=== PATIENT | female | born 1930 | race Caucasian/White ===

== ENCOUNTER → 2016-03-14 | Outpatient (CLI) | payer MEDICARE | LOC: RAD 12:34 | PROVIDERS: ATTEND Internal Medicine Medical Oncology | DX: R10.9 Unspecified abdominal pain (principal) | CPT/HCPCS: 74160; 82565 ==

== ENCOUNTER 2016-06-11 14:27 | Inpatient (IN) | payer MEDICARE ==
[2016-06-11] MEDS ORDERED: OXYCODONE-ACETAMINOPHEN 5-325 MG TABLET PO ONE (15:25)
--- NOTE | 2016-06-11 15:26 | ER Document Report ---
ED Medical Screen (RME) - General Chief Complaint: Leg Swelling Stated Complaint: LEG SWELLING,DIZZINES Time seen by provider: 15:25 Mode of Arrival: Wheelchair Information source: Patient TRAVEL OUTSIDE OF THE [place] IN LAST 30 DAYS: No - HPI Patient complains to provider of: left lower extremity swelling and pain Onset: Other - 4 days Onset/Duration: Worse Quality of pain: Fullness, Pressure, Throbbing Severity: Moderate Pain Level: 4 Associated Symptoms: Dizzy/lightheaded, Shortness of breath Exacerbated by: Denies Relieved by: Denies Similar symptoms previously: No Recently seen / treated by doctor: No Notes: 06/11/16 15:25 Patient is an 86-year-old female who presents to the emergency room complaining of left lower extremity pain and swelling and worsening over the past 4 days, she is a history of a total knee replacement approximately 3 years ago, she reports occasional chest pain with dyspnea on exertion worsening over the past few days as well - Related Data Allergies/Adverse Reactions: bupropion HCl [From Wellbutrin] Allergy (Intermediate, Verified 06/11/16 14:51) hallucination,diarrhea Past Medical History - Past Medical History Cardiac Medical History: Reports: Hx Hypertension - medicated Denies: Hx Coronary Artery Disease, Hx Heart Attack Pulmonary Medical History: Denies: Hx Asthma, Hx Bronchitis, Hx COPD, Hx Pneumonia Neurological Medical History: Denies: Hx Cerebrovascular Accident, Hx Seizures Renal/ Medical History: Denies: Hx Peritoneal Dialysis GI Medical History: Denies: Hx Hepatitis, Hx Hiatal Hernia, Hx Ulcer Musculoskeltal Medical History: Reports Hx Arthritis Infectious Medical History: Denies: Hx Hepatitis Past Surgical History: Reports: Hx Hysterectomy, Hx Mastectomy - apr 2011 denise/ no restrictions. Denies: Hx Open Heart Surgery, Hx Pacemaker - Immunizations Hx Diphtheria, Pertussis, Tetanus Vaccination: Yes Physical Exam - Vital signs Vitals: Temp Pulse Resp BP Pulse Ox 98.4 F 95 20 106/80 97 06/11/16 14:51 06/11/16 14:51 06/11/16 14:51 06/11/16 14:51 06/11/16 14:51 Course - Vital Signs Vital signs: Temp Pulse Resp BP Pulse Ox 98.4 F 95 20 106/80 97 06/11/16 14:51 06/11/16 14:51 06/11/16 14:51 06/11/16 14:51 06/11/16 14:51
[2016-06-11 15:46] LABS: ABSOLUTE BASOPHILS # (AUTO) 0.1 10^3/uL (0.0-0.2); ABSOLUTE EOSINOPHILS # (AUTO) 0.1 10^3/uL (0.0-0.6); ABSOLUTE MONOCYTES (AUTO) 0.9 10^3/uL (0.1-1.4); ABSOLUTE NEUT (AUTO) 9.7 10^3/uL (1.7-8.2); BASOPHILS % (AUTO) 0.8 % (0-2); EOSINOPHILS % (AUTO) 0.7 % (0-6); HEMATOCRIT 34.7 % (36.0-47.0); HEMOGLOBIN 11.4 g/dL (12.0-15.5); HGB HCT DIFFERENCE -0.5; LYMPHOCYTES % (AUTO) 8.7 % (13-45); MEAN CORPUSCULAR HEMOGLOBIN 30.3 pg (27.0-33.4); MEAN CORPUSCULAR HGB CONC 32.9 g/dL (32.0-36.0); MEAN CORPUSCULAR VOLUME 92 fl (80-97); MONOCYTES % (AUTO) 7.8 % (3-13); RED BLOOD COUNT 3.77 10^6/uL (3.72-5.28); RED CELL DISTRIBUTION WIDTH 14.1 % (11.5-14.0); WHITE BLOOD COUNT 11.8 10^3/uL (4.0-10.5)
[2016-06-11 15:55] LABS: PARTIAL THROMBOPLASTIN TIME 25.8 SEC (23.5-35.8)
[2016-06-11 16:31] LABS: ALANINE AMINOTRANSFERASE 25 U/L (9-52); ALBUMIN 3.5 g/dL (3.5-5.0); ALKALINE PHOSPHATASE 63 U/L (38-126); ANION GAP 19 (5-19); ASPARTATE AMINO TRANSFERASE 23 U/L (14-36); BILIRUBIN,DIRECT 0.4 mg/dL (0.0-0.4); BILIRUBIN,TOTAL 0.6 mg/dL (0.2-1.3); BLOOD UREA NITROGEN 38 mg/dL (7-20); CALCIUM 9.2 mg/dL (8.4-10.2); CARBON DIOXIDE 22 mmol/L (22-30); CHLORIDE 96 mmol/L (98-107); CREATINE KINASE 35 U/L (30-135); CREATININE RESULT 1.93 mg/dL (0.52-1.25); GLUCOSE 206 mg/dL (75-110); POTASSIUM 3.8 mmol/L (3.6-5.0); SODIUM 137.1 mmol/L (137-145); TOTAL PROTEIN 6.4 g/dL (6.3-8.2)
[2016-06-11 16:39] LABS: CREATINE KINASE MB 1.03 ng/mL (<4.55); TROPONIN I 0.024 ng/mL
--- NOTE | 2016-06-11 17:13 | ER Document Report ---
ED General - General Mode of Arrival: Wheelchair Information source: Patient TRAVEL OUTSIDE OF THE [place] IN LAST 30 DAYS: No - HPI Patient complains to provider of: Left Leg Swelling Onset: Other - 06/06/2016 Onset/Duration: Sudden Associated symptoms: Chest pain, Shortness of breath, Weakness Exacerbated by: Movement <JOHN PIÑA - Last Filed: 06/11/16 18:08> <ANDREW GASPAR - Last Filed: 06/14/16 05:46> - General Chief Complaint: Leg Swelling Stated Complaint: LEG SWELLING,DIZZINES Notes: Patient is an 86-year-old female presenting to the emergency department with concerns of left leg swelling onset 06/06/2016 with significant associated pain. Patient states she actually first noticed the pain in her groin, and it continued to progress as the swelling progress. Patient also states that she has been short of breath today severely with exertion. Patient also mentions 2 weeks of chest pain and generalized weakness. Patient states that "it all started with her irritable bowel syndrome." Per patient's daughter, patient was experiencing rectal bleeding at the end of May, but when she started taking Metamucil, and it resolved itself. Patient states that she also has history of hemorrhoids, where the blood was bright red, but the rectal bleeding that happened at the end of May was a darker color. Patient was scheduled to have colonoscopy on Thursday, but didn't make it due to her leg pain. Patient's GI doctor is Dr. Luevano. Patient's primary care physician is Dr. Reese. (JOHN PIÑA) - Related Data Allergies/Adverse Reactions: bupropion HCl [From Wellbutrin] Allergy (Intermediate, Verified 06/11/16 14:51) hallucination,diarrhea Home Medications: Current Home Medications Amlodipine Besylate [Norvasc 10 mg Tablet] 10 mg PO DAILY 06/11/16 [History] Hydralazine HCl [Apresoline 25 mg Tablet] 25 mg PO Q12 06/11/16 [History] Levothyroxine Sodium [Synthroid] 150 mcg PO DAILY 06/11/16 [History] Metformin HCl [Metformin HCl ER] 2,000 mg PO MEALS 06/11/16 [History] Omeprazole 20 mg PO DAILY 06/11/16 [History] Tamoxifen Citrate 10 mg PO BID 06/11/16 [History] Valsartan/Hydrochlorothiazide [Valsartan-Hctz 320-25 mg Tab] 1 tab PO DAILY 04/25 [History] Venlafaxine HCl [Venlafaxine HCl ER] 150 mg PO DAILY 06/11/16 [History] Past Medical History - General Information source: Patient - Social History Smoking Status: Former Smoker Chew tobacco use (# tins/day): No Frequency of alcohol use: None Drug Abuse: None Family History: Reviewed & Not Pertinent Patient has suicidal ideation: No Patient has homicidal ideation: No - Past Medical History Cardiac Medical History: Reports: Hx Hypertension - medicated, Other - Pacemaker Endocrine Medical History: Reports: Hx Diabetes Mellitus Type 1 Malignancy Medical History: Reports: Hx Breast Cancer GI Medical History: Reports: Hx Hiatal Hernia, Hx Irritable Bowel, Hx Endoscopy Musculoskeltal Medical History: Reports Hx Arthritis Infectious Medical History: Denies: Hx Hepatitis Past Surgical History: Reports: Hx Hysterectomy, Hx Mastectomy - apr 2011 denise/ no restrictions, Hx Orthopedic Surgery - Left knee replacement. Denies: Hx Open Heart Surgery, Hx Pacemaker - Immunizations Hx Diphtheria, Pertussis, Tetanus Vaccination: Yes Hx Pneumococcal Vaccination: 11/11/10 <JOHN PIÑA - Last Filed: 06/11/16 18:08> Review of Systems - Review of Systems Constitutional: See HPI, Weakness EENT: No symptoms reported Cardiovascular: See HPI, Chest pain Respiratory: See HPI, Short of breath Gastrointestinal: No symptoms reported. denies: Rectal bleeding - At this point in time Genitourinary: No symptoms reported Female Genitourinary: No symptoms reported Musculoskeletal: See HPI, Leg swelling - Left, Other - Pain in left groin and leg Skin: No symptoms reported Hematologic/Lymphatic: No symptoms reported Neurological/Psychological: No symptoms reported -: Yes All other systems reviewed and negative <JOHN PIÑA - Last Filed: 06/11/16 18:08> Physical Exam - General General appearance: Appears well, Alert - HEENT Head: Normocephalic, Atraumatic Eyes: Normal Pupils: PERRL - Respiratory Respiratory status: No respiratory distress Chest status: Nontender Breath sounds: Normal Chest palpation: Normal - Cardiovascular Rhythm: Regular Heart sounds: Normal auscultation Murmur: No - Abdominal Inspection: Obese Distension: No distension Bowel sounds: Normal Tenderness: Nontender Organomegaly: No organomegaly - Back Back: Normal, Nontender - Extremities General upper extremity: Normal inspection, Nontender General lower extremity: Edema - Increased swelling of her left lower extremity compared to the right. Good pulses and perfusion. Mild varicose veins. - Neurological Neuro grossly intact: Yes Cognition: Normal Orientation: AAOx4 Prescott Coma Scale Eye Opening: Spontaneous Francisco Javier Coma Scale Verbal: Oriented Prescott Coma Scale Motor: Obeys Commands Francisco Javier Coma Scale Total: 15 Speech: Normal - Psychological Associated symptoms: Normal affect, Normal mood - Skin Skin Temperature: Warm Skin Moisture: Dry Skin Color: Normal <ANTONIO PIÑAICA - Last Filed: 06/11/16 18:08> Course - Laboratory Result Diagrams: 06/11/16 15:35 06/11/16 15:35 - Consults Dr. Reese Time consulted: 17:36 Consulted provider: will see as inpatient <ANTONIO PIÑAICA - Last Filed: 06/11/16 18:08> - Laboratory Result Diagrams: 06/11/16 15:35 06/13/16 04:20 <ANDREW GASPAR - Last Filed: 06/14/16 05:46> - Re-evaluation Re-evalutation: 06/11/16 17:40 Patient presents to the emergency department with pain and swelling in her left groin that started 4 days ago. She says got progressively worse to the point where her granddaughter couldn't get her into the car today. In addition to that the granddaughter is stating that for the past week to 2 weeks she's been progressively short of breath after specific details about this and for at least the past week when she gets up and tries to exert herself she gets so short of breath that she has to stop and rest. Patient states he gets worse when she exerts herself and is stable at rest. She describing classic anginal type symptoms. She does not have a history of NM or stents according to the records show patient. EKG is paced rhythm troponin is negative chest x-ray is negative she has a deep DVT that extends from the left groin down to the entire leg which is associated with swelling and good pulses and perfusion. Discussed this with her primary care physician in addition to the fact that she had mentioned external hemorrhoids. They are not actively bleeding her guaiac is negative from below she has no epigastric abdominal pain and has not been known thinners in the past. She did mention at the end of May doctor we G did an upper GI scope and said she might have some ulcers we have no record of that on file. Despite all of this I presented this to the primary care physician Dr. Mckeon who stated ahead and put her on full dose Lovenox and admit her to the telemetry unit. In addition to that going to give her a dose of aspirin and further admit her to telemetry for a lower extremity DVT in dyspnea on exertion (ANDREW GASPAR) - Vital Signs Vital signs: Temp Pulse Resp BP Pulse Ox 99.5 F 61 14 116/47 L 93 06/13/16 23:50 06/14/16 02:00 06/13/16 23:50 06/13/16 23:50 06/13/16 23:50 - Laboratory Laboratory results interpreted by me: 06/11/16 06/11/16 06/11/16 15:35 15:35 15:35 WBC 11.8 H Hgb 11.4 L Hct 34.7 L RDW 14.1 H Seg Neutrophils % 82.0 H Lymphocytes % 8.7 L Absolute Neutrophils 9.7 H Chloride 96 L BUN 38 H Creatinine 1.93 H Est GFR ( Amer) 30 L Est GFR (Non-Af Amer) 25 L Glucose 206 H NT-Pro-B Natriuret Pep 833 H - EKG Interpretation by Me Additional EKG results interpreted by me: 06/11/16 17:44 ekg is paced rhythm (ANDREW GASPAR) - Consults Dr. Reese Reason for consultation: 06/11/16 17:36 discussed patient's case with Dr. Reese who agrees to admit the patient (JOHN PIÑA) Critical Care Note - Critical Care Note Total time excluding time spent on procedures (mins): 45 <ANDREW GASPAR - Last Filed: 06/14/16 05:46> Discharge <JOHN PIÑA - Last Filed: 06/11/16 18:08> - Discharge Admitting Provider: Linda Unit Admitted: Telemetry <ANDREW GASPAR - Last Filed: 06/14/16 05:46> - Discharge Clinical Impression: acute lower extremity dvt, dyspnea with exertion Condition: Stable Disposition: ADMITTED OBSERVATION Scribe Attestation: 06/11/16 17:40 I personally performed the services described in the documentation reviewed the documentation recorded by my scribe in my presence and it accurately and completely records my words and actions (ANDREW GASPAR) Scribe Documentation - Scribe Written by Scribe:: John Piña 06/11/2016 1713 acting as scribe for :: Dr. Gaspar <JOHN PIÑA - Last Filed: 06/11/16 18:08>
--- NOTE | 2016-06-11 19:13 | EKG REPORT ---
SEVERITY:- ABNORMAL ECG - SINUS RHYTHM, PACS, SOME NON-CONDUCTED. LEFT ANTERIOR FASCICULAR BLOCK PROBABLE LVH WITH SECONDARY REPOL ABNRM OLD ANTERIOR IL : Confirmed by: Yasmany Hebert MD 11-Jun-2016 19:12:55
[2016-06-11] MEDS ORDERED: WARFARIN SODIUM 5 MG TABLET PO ONE (23:45)
[2016-06-11] MEDS ORDERED: ENOXAPARIN SODIUM INJ 100 MG/1 ML DISP.SYRIN SUBCUT ONE (23:45)
--- NOTE | 2016-06-12 08:27 | PDOC H&P ---
History of Present Illness Admission Date/PCP: 06/12/16 00:04 NERY JENSEN MD Patient complains of: d L leg swelling History of Present Illness: GARCIA TRINIDAD is a 86 year old female with new L leg swelling & pain & inablility to walk. Extensive dvt in ER. Past Medical History Cardiac Medical History: Reports: Congestive Heart Failure - diastolic wtih stiffness last year, Hypertension - medicated, Other - Pacemaker Denies: Coronary Artery Disease, Myocardial Infarction Pulmonary Medical History: Reports: Bronchitis - 2006 chronic bronchitis Denies: Asthma, Pneumonia EENT Medical History: Reports: Nose - allergic rhinitis Neurological Medical History: Reports: Other - diabetic neuropathy Denies: Seizures Endocrine Medical History: Reports: Diabetes Mellitus Type 2 Renal/ Medical History: Denies: Chronic Kidney Disease Malignancy Medical History: Reports: Breast Cancer - 2002 GI Medical History: Reports: Gastroesophageal Reflux Disease - barretts, Peptic Ulcer Disease, Other - ibs Denies: Hepatitis Musculoskeltal Medical History: Reports: Arthritis Psychiatric Medical History: Reports: Depression Traumatic Medical History: Reports: None Hematology: Denies: Anemia, Sickle Cell Disease Infectious Medical History: Reports: None Past Surgical History Past Surgical History: Reports: Hysterectomy, Mastectomy - apr 2011 denise/no restrictions, Orthopedic Surgery - Left knee replacement laminectomy, Other Denies: Amputation, Pacemaker Social History Information Source: Dr. Coughlin Lives with: Alone Smoking Status: Former Smoker Last Time Smoked: 1985 Frequency of Alcohol Use: None Hx Recreational Drug Use: No Drugs: None Hx Prescription Drug Abuse: No - Advance Directive Resuscitation Status: Full Code Family History Family History: Hypertension, Malignancy Parental Family History Reviewed: Yes Children Family History Reviewed: Yes Sibling(s) Family History Reviewed.: Yes Medication/Allergy Home Medications: Amlodipine Besylate [Norvasc 10 mg Tablet] 10 mg PO DAILY 06/11/16 Hydralazine HCl [Apresoline 25 mg Tablet] 25 mg PO Q12 06/11/16 Levothyroxine Sodium [Synthroid] 150 mcg PO DAILY 06/11/16 Metformin HCl [Metformin HCl ER] 2,000 mg PO MEALS 06/11/16 Omeprazole 20 mg PO DAILY 06/11/16 Tamoxifen Citrate 10 mg PO BID 06/11/16 Valsartan/Hydrochlorothiazide [Valsartan-Hctz 320-25 mg Tab] 1 tab PO DAILY 04/25 Venlafaxine HCl [Venlafaxine HCl ER] 150 mg PO DAILY 06/11/16 Allergies/Adverse Reactions: bupropion HCl [From Wellbutrin] Allergy (Intermediate, Verified 06/11/16 14:51) hallucination,diarrhea Review of Systems Constitutional: PRESENT: weight loss. ABSENT: fever(s), headache(s) Nose, Mouth, and Throat: PRESENT: sore throat Cardiovascular: PRESENT: dyspnea on exertion, orthropnea. ABSENT: chest pain Respiratory: PRESENT: cough, dyspnea, sputum Gastrointestinal: ABSENT: abdominal pain, constipation, diarrhea, hematochezia, melena, vomiting Genitourinary: ABSENT: dysuria, hematuria Physical Exam Vital Signs: Temp Pulse Resp BP Pulse Ox 99.1 F 76 18 119/61 93 06/12/16 03:34 06/12/16 03:34 06/12/16 03:34 06/12/16 03:34 06/12/16 03:34 Intake & Output 06/10/16 06/11/16 06/12/16 07:59 07:59 07:59 Weight 204 lb 12.951 oz General appearance: PRESENT: no acute distress Neck exam: ABSENT: lymphadenopathy, tenderness, thyromegaly, tracheal deviation Respiratory exam: PRESENT: wheezes - slight Cardiovascular exam: ABSENT: diastolic murmur, irregular rhythm, systolic murmur GI/Abdominal exam: ABSENT: mass, organolmegaly, tenderness Rectal exam: PRESENT: heme (-) stool Extremities exam: ABSENT: pedal edema - L leg. Homans+ Neurological exam: PRESENT: oriented to situation Psychiatric exam: PRESENT: appropriate affect Results Laboratory Results: Abnormal - 24 hr 06/11/16 06/11/16 06/11/16 15:35 15:35 15:35 WBC 11.8 H Hgb 11.4 L Hct 34.7 L RDW 14.1 H Seg Neutrophils % 82.0 H Lymphocytes % 8.7 L Absolute Neutrophils 9.7 H Chloride 96 L BUN 38 H Creatinine 1.93 H Est GFR ( Amer) 30 L Est GFR (Non-Af Amer) 25 L Glucose 206 H NT-Pro-B Natriuret Pep 833 H EKG Comments: slow R progression Impressions: Chest X-Ray 06/11/16 15:24 IMPRESSION: NO SIGNIFICANT RADIOGRAPHIC FINDING IN THE CHEST. Venous Doppler Study 06/11/16 15:24 IMPRESSION: DIFFUSE DEEP VENOUS THROMBOSIS THROUGHOUT THE LEFT LEG. Knee X-Ray 06/11/16 15:26 IMPRESSION: Total knee arthroplasty. Assessment & Plan - Diagnosis (1) Phlebitis of left femoral vein Is this a current diagnosis for this admission?: YesPlan: lovenox coumadin. Consider novel $. CC34 (2) Acute kidney failure with tubular necrosis Is this a current diagnosis for this admission?: YesPlan: nov cr0.9. Force fluids
[2016-06-12] MEDS: AMLODIPINE BESYLATE 10 MG TABLET PO SCH (09:48)
[2016-06-12] MEDS: VENLAFAXINE HCL 75 MG CAP.SR.24H PO SCH (09:48)
[2016-06-12] MEDS: LANSOPRAZOLE 30 MG TAB.RAP.DR PO SCH (09:49)
[2016-06-12] MEDS: TAMOXIFEN CITRATE 10 MG TABLET PO SCH ×2 (09:49→17:49)
[2016-06-12] MEDS: ACETAMINOPHEN 325 MG TABLET PO PRN (09:54)
[2016-06-12] MEDS ORDERED: LEVOTHYROXINE SODIUM 0.15 MG TABLET PO SCH (10:00)
[2016-06-12] MEDS ORDERED: ENOXAPARIN SODIUM INJ 100 MG/1 ML DISP.SYRIN SUBCUT SCH (12:00)
[2016-06-12] MEDS ORDERED: WARFARIN SODIUM 5 MG TABLET PO SCH (22:00)
[2016-06-13 04:45] LABS: PROTHROMBIN TIME 13.1 SEC (11.4-15.4)
[2016-06-13] MEDS: LEVOTHYROXINE SODIUM 0.15 MG TABLET PO SCH (05:25)
[2016-06-13 05:53] LABS: ANION GAP 12 (5-19); BLOOD UREA NITROGEN 38 mg/dL (7-20); CALCIUM 8.4 mg/dL (8.4-10.2); CARBON DIOXIDE 26 mmol/L (22-30); CHLORIDE 97 mmol/L (98-107); GLUCOSE 166 mg/dL (75-110); POTASSIUM 4.1 mmol/L (3.6-5.0)
--- NOTE | 2016-06-13 07:28 | PDOC PROGRESS REPORT ---
Subjective Progress Note for:: 06/13/16 Subjective:: less L leg pain Physical Exam Vital Signs: Temp Pulse Resp BP Pulse Ox 98.6 F 83 18 134/89 H 95 06/13/16 04:42 06/13/16 04:42 06/13/16 04:42 06/13/16 04:42 06/13/16 04:42 Intake & Output 06/11/16 06/12/16 06/13/16 07:59 07:59 07:59 Intake Total 387 Balance 387 Weight 204 lb 12.951 oz 204 lb 12.951 oz General appearance: PRESENT: no acute distress Respiratory exam: PRESENT: clear to auscultation denise Cardiovascular exam: ABSENT: diastolic murmur, irregular rhythm, systolic murmur GI/Abdominal exam: ABSENT: mass, organolmegaly, tenderness Extremities exam: PRESENT: pedal edema - L Results Laboratory Results: 06/13/16 04:20 06/13/16 04:20 Sodium 135.0 L Potassium 4.1 Chloride 97 L Carbon Dioxide 26 Anion Gap 12 BUN 38 H Creatinine 1.20 Est GFR ( Amer) 52 L Est GFR (Non-Af Amer) 43 L Glucose 166 H Calcium 8.4 Impressions: Chest X-Ray 06/11/16 15:24 IMPRESSION: NO SIGNIFICANT RADIOGRAPHIC FINDING IN THE CHEST. Venous Doppler Study 06/11/16 15:24 IMPRESSION: DIFFUSE DEEP VENOUS THROMBOSIS THROUGHOUT THE LEFT LEG. Knee X-Ray 06/11/16 15:26 IMPRESSION: Total knee arthroplasty. Assessment & Plan - Diagnosis (1) Phlebitis of left femoral vein Is this a current diagnosis for this admission?: YesPlan: lovenox 100ng qd. Coumadin education (2) Acute kidney failure with tubular necrosis Is this a current diagnosis for this admission?: YesPlan: bmp
[2016-06-13] MEDS: AMLODIPINE BESYLATE 10 MG TABLET PO SCH (10:45)
[2016-06-13] MEDS: ENOXAPARIN SODIUM INJ 100 MG/1 ML DISP.SYRIN SUBCUT SCH (10:46)
[2016-06-13] MEDS: VENLAFAXINE HCL 75 MG CAP.SR.24H PO SCH (10:46)
[2016-06-13] MEDS: TAMOXIFEN CITRATE 10 MG TABLET PO SCH ×2 (10:46→19:02)
[2016-06-13] MEDS: LANSOPRAZOLE 30 MG TAB.RAP.DR PO SCH (10:46)
[2016-06-14] MEDS: LEVOTHYROXINE SODIUM 0.15 MG TABLET PO SCH (05:35)
--- NOTE | 2016-06-14 06:17 | PDOC PROGRESS REPORT ---
Subjective Progress Note for:: 06/14/16 Subjective:: less leg pain Physical Exam Vital Signs: Temp Pulse Resp BP Pulse Ox 99.5 F 61 14 116/47 L 93 06/13/16 23:50 06/14/16 02:00 06/13/16 23:50 06/13/16 23:50 06/13/16 23:50 Intake & Output 06/12/16 06/13/16 06/14/16 07:59 07:59 07:59 Intake Total 387 220 Balance 387 220 Weight 204 lb 12.951 oz 204 lb 12.951 oz General appearance: PRESENT: no acute distress Respiratory exam: PRESENT: clear to auscultation denise Cardiovascular exam: ABSENT: diastolic murmur, irregular rhythm, systolic murmur Extremities exam: PRESENT: pedal edema - L Neurological exam: PRESENT: oriented to situation Psychiatric exam: PRESENT: appropriate affect Results Laboratory Results: 06/13/16 04:20 Impressions: Chest X-Ray 06/11/16 15:24 IMPRESSION: NO SIGNIFICANT RADIOGRAPHIC FINDING IN THE CHEST. Venous Doppler Study 06/11/16 15:24 IMPRESSION: DIFFUSE DEEP VENOUS THROMBOSIS THROUGHOUT THE LEFT LEG. Knee X-Ray 06/11/16 15:26 IMPRESSION: Total knee arthroplasty. Assessment & Plan - Diagnosis (1) Phlebitis of left femoral vein Is this a current diagnosis for this admission?: YesPlan: inr pending. No increase as of yesterday. (2) Acute kidney failure with tubular necrosis Is this a current diagnosis for this admission?: YesPlan: creatinine improved
[2016-06-14 06:45] LABS: BLOOD UREA NITROGEN 31 mg/dL (7-20); CALCIUM 8.1 mg/dL (8.4-10.2); CREATININE RESULT 0.86 mg/dL (0.52-1.25); GLUCOSE 159 mg/dL (75-110); POTASSIUM 3.9 mmol/L (3.6-5.0)
[2016-06-14 06:46] LABS: ANION GAP 11 (5-19); CARBON DIOXIDE 27 mmol/L (22-30); CHLORIDE 101 mmol/L (98-107); SODIUM 138.8 mmol/L (137-145)
[2016-06-14] MEDS: ENOXAPARIN SODIUM INJ 100 MG/1 ML DISP.SYRIN SUBCUT SCH (10:53)
[2016-06-14] MEDS: TAMOXIFEN CITRATE 10 MG TABLET PO SCH ×2 (10:54→17:33)
[2016-06-14] MEDS: VENLAFAXINE HCL 75 MG CAP.SR.24H PO SCH (10:54)
[2016-06-14] MEDS: AMLODIPINE BESYLATE 10 MG TABLET PO SCH (10:54)
[2016-06-14] MEDS: LANSOPRAZOLE 30 MG TAB.RAP.DR PO SCH (10:54)
[2016-06-14] MEDS ORDERED: METOPROLOL SUCCINATE 50 MG TAB.SR.24H PO ONE (15:00)
[2016-06-14] MEDS ORDERED: WARFARIN SODIUM 5 MG TABLET PO SCH (22:00)
[2016-06-15] MEDS: LEVOTHYROXINE SODIUM 0.15 MG TABLET PO SCH (06:04)
[2016-06-15 06:14] LABS: PROTHROMBIN TIME 12.5 SEC (11.4-15.4)
[2016-06-15 06:27] LABS: ANION GAP 9 (5-19); BLOOD UREA NITROGEN 27 mg/dL (7-20); CALCIUM 8.1 mg/dL (8.4-10.2); CARBON DIOXIDE 28 mmol/L (22-30); CHLORIDE 101 mmol/L (98-107); GLUCOSE 169 mg/dL (75-110); POTASSIUM 4.1 mmol/L (3.6-5.0); SODIUM 137.9 mmol/L (137-145)
--- NOTE | 2016-06-15 06:49 | PDOC PROGRESS REPORT ---
Subjective Progress Note for:: 06/15/16 Subjective:: L leg still swollen Physical Exam Vital Signs: Temp Pulse Resp BP Pulse Ox 98.9 F 86 22 H 108/47 L 93 06/14/16 23:46 06/15/16 02:00 06/14/16 23:46 06/14/16 23:46 06/14/16 23:46 Intake & Output 06/13/16 06/14/16 06/15/16 07:59 07:59 07:59 Intake Total 387 220 710 Output Total 600 Balance 387 220 110 Weight 204 lb 12.951 oz 208 lb 5.389 oz General appearance: PRESENT: no acute distress Respiratory exam: PRESENT: clear to auscultation denise Cardiovascular exam: ABSENT: diastolic murmur, irregular rhythm, systolic murmur GI/Abdominal exam: ABSENT: tenderness Extremities exam: PRESENT: pedal edema - L1+ Results Laboratory Results: 06/15/16 05:29 06/14/16 06/15/16 05:45 05:29 Sodium 138.8 137.9 Potassium 3.9 4.1 Chloride 101 101 Carbon Dioxide 27 28 Anion Gap 11 9 BUN 31 H 27 H Creatinine 0.86 0.80 Est GFR ( Amer) > 60 > 60 Est GFR (Non-Af Amer) > 60 > 60 Glucose 159 H 169 H Calcium 8.1 L 8.1 L Labs- Last Values WBC 11.8 10^3/uL (4.0-10.5) H 06/11/16 15:35 RBC 3.77 10^6/uL (3.72-5.28) 06/11/16 15:35 Hgb 11.4 g/dL (12.0-15.5) L 06/11/16 15:35 Hct 34.7 % (36.0-47.0) L 06/11/16 15:35 MCV 92 fl (80-97) 06/11/16 15:35 MCH 30.3 pg (27.0-33.4) 06/11/16 15:35 MCHC 32.9 g/dL (32.0-36.0) 06/11/16 15:35 RDW 14.1 % (11.5-14.0) H 06/11/16 15:35 Plt Count 219 10^3/uL (150-450) 06/11/16 15:35 Seg Neutrophils % 82.0 % (42-78) H 06/11/16 15:35 Lymphocytes % 8.7 % (13-45) L 06/11/16 15:35 Monocytes % 7.8 % (3-13) 06/11/16 15:35 Eosinophils % 0.7 % (0-6) 06/11/16 15:35 Basophils % 0.8 % (0-2) 06/11/16 15:35 Absolute Neutrophils 9.7 10^3/uL (1.7-8.2) H 06/11/16 15:35 Absolute Lymphocytes 1.0 10^3/uL (0.5-4.7) 06/11/16 15:35 Absolute Monocytes 0.9 10^3/uL (0.1-1.4) 06/11/16 15:35 Absolute Eosinophils 0.1 10^3/uL (0.0-0.6) 06/11/16 15:35 Absolute Basophils 0.1 10^3/uL (0.0-0.2) 06/11/16 15:35 PT 12.5 SEC (11.4-15.4) 06/15/16 05:29 INR 0.91 06/15/16 05:29 APTT 25.8 SEC (23.5-35.8) 06/11/16 15:35 Sodium 137.9 mmol/L (137-145) 06/15/16 05:29 Potassium 4.1 mmol/L (3.6-5.0) 06/15/16 05:29 Chloride 101 mmol/L (98-107) 06/15/16 05:29 Carbon Dioxide 28 mmol/L (22-30) 06/15/16 05:29 Anion Gap 9 (5-19) 06/15/16 05:29 BUN 27 mg/dL (7-20) H 06/15/16 05:29 Creatinine 0.80 mg/dL (0.52-1.25) 06/15/16 05:29 Est GFR ( Amer) > 60 (>60) 06/15/16 05:29 Est GFR (Non-Af Amer) > 60 (>60) 06/15/16 05:29 Glucose 169 mg/dL (75-110) H 06/15/16 05:29 POC Glucose 217 mg/dL (70-110) H 06/14/16 22:49 Calcium 8.1 mg/dL (8.4-10.2) L 06/15/16 05:29 Total Bilirubin 0.6 mg/dL (0.2-1.3) 06/11/16 15:35 Direct Bilirubin 0.4 mg/dL (0.0-0.4) 06/11/16 15:35 Indirect Bilirubin Not Reportable 06/11/16 15:35 Neonat Total Bilirubin Not Reportable 06/11/16 15:35 AST 23 U/L (14-36) 06/11/16 15:35 ALT 25 U/L (9-52) 06/11/16 15:35 Alkaline Phosphatase 63 U/L (38-126) 06/11/16 15:35 Creatine Kinase 35 U/L (30-135) 06/11/16 15:35 CK-MB (CK-2) 1.03 ng/mL (<4.55) 06/11/16 15:35 Troponin I 0.024 ng/mL 06/11/16 15:35 NT-Pro-B Natriuret Pep 833 pg/mL (<450) H 06/11/16 15:35 Total Protein 6.4 g/dL (6.3-8.2) 06/11/16 15:35 Albumin 3.5 g/dL (3.5-5.0) 06/11/16 15:35 Stool Occult Blood NEGATIVE (NEGATIVE) 06/11/16 17:19 Impressions: Chest X-Ray 06/11/16 15:24 IMPRESSION: NO SIGNIFICANT RADIOGRAPHIC FINDING IN THE CHEST. Venous Doppler Study 06/11/16 15:24 IMPRESSION: DIFFUSE DEEP VENOUS THROMBOSIS THROUGHOUT THE LEFT LEG. Knee X-Ray 06/11/16 15:26 IMPRESSION: Total knee arthroplasty. Assessment & Plan - Diagnosis (1) Phlebitis of left femoral vein Is this a current diagnosis for this admission?: YesPlan: inr slow to climb. Yesterday got 7.5mg. (2) Acute kidney failure with tubular necrosis Is this a current diagnosis for this admission?: Yes
[2016-06-15] MEDS ORDERED: (PENDING PHARMACY ID) (Metformin Hcl [Metformin Hcl Er] 2,000 MG) PO SCH (08:00)
[2016-06-15] MEDS: METFORMIN HCL 500 MG TABLET PO SCH ×2 (08:32→16:26)
[2016-06-15] MEDS ORDERED: METOPROLOL SUCCINATE 50 MG TAB.SR.24H PO SCH (10:00)
[2016-06-15] MEDS: VENLAFAXINE HCL 75 MG CAP.SR.24H PO SCH (10:18)
[2016-06-15] MEDS: LUBIPROSTONE 24 MCG CAPSULE PO SCH ×2 (10:18→18:02)
[2016-06-15] MEDS: LANSOPRAZOLE 30 MG TAB.RAP.DR PO SCH (10:18)
[2016-06-15] MEDS: AMLODIPINE BESYLATE 10 MG TABLET PO SCH (10:18)
[2016-06-15] MEDS: ENOXAPARIN SODIUM INJ 100 MG/1 ML DISP.SYRIN SUBCUT SCH (10:19)
[2016-06-15] MEDS: TAMOXIFEN CITRATE 10 MG TABLET PO SCH ×2 (10:19→18:01)
[2016-06-15] MEDS ORDERED: WARFARIN SODIUM 5 MG TABLET PO ONE (19:30)
[2016-06-15] MEDS: WARFARIN SODIUM 5 MG TABLET PO SCH (21:10)
[2016-06-16] MEDS: LEVOTHYROXINE SODIUM 0.15 MG TABLET PO SCH (05:25)
[2016-06-16 06:36] LABS: ANION GAP 8 (5-19); BLOOD UREA NITROGEN 23 mg/dL (7-20); CARBON DIOXIDE 27 mmol/L (22-30); CHLORIDE 102 mmol/L (98-107); CREATININE RESULT 0.85 mg/dL (0.52-1.25); GLUCOSE 154 mg/dL (75-110); POTASSIUM 4.2 mmol/L (3.6-5.0); SODIUM 137.3 mmol/L (137-145)
--- NOTE | 2016-06-16 07:40 | PDOC PROGRESS REPORT ---
Subjective Progress Note for:: 06/16/16 Subjective:: L leg ache when up Physical Exam Vital Signs: Temp Pulse Resp BP Pulse Ox 98.5 F 73 17 128/56 H 92 06/16/16 01:53 06/16/16 02:00 06/16/16 01:53 06/16/16 01:53 06/16/16 01:53 Intake & Output 06/14/16 06/15/16 06/16/16 07:59 07:59 07:59 Intake Total 646 152 3988 Output Total 600 900 Balance 220 350 440 Weight 208 lb 5.389 oz 211 lb 13.828 oz 212 lb 4.882 oz General appearance: PRESENT: no acute distress Respiratory exam: PRESENT: clear to auscultation denise Cardiovascular exam: ABSENT: diastolic murmur, irregular rhythm, systolic murmur GI/Abdominal exam: ABSENT: mass, organolmegaly, tenderness Extremities exam: PRESENT: pedal edema - L1+ Neurological exam: PRESENT: oriented to situation Psychiatric exam: PRESENT: appropriate affect Results Laboratory Results: 06/16/16 05:33 06/16/16 05:33 Sodium 137.3 Potassium 4.2 Chloride 102 Carbon Dioxide 27 Anion Gap 8 BUN 23 H Creatinine 0.85 Est GFR ( Amer) > 60 Est GFR (Non-Af Amer) > 60 Glucose 154 H Calcium 8.0 L Impressions: Chest X-Ray 06/11/16 15:24 IMPRESSION: NO SIGNIFICANT RADIOGRAPHIC FINDING IN THE CHEST. Venous Doppler Study 06/11/16 15:24 IMPRESSION: DIFFUSE DEEP VENOUS THROMBOSIS THROUGHOUT THE LEFT LEG. Knee X-Ray 06/11/16 15:26 IMPRESSION: Total knee arthroplasty. Assessment & Plan - Diagnosis (1) Phlebitis of left femoral vein Is this a current diagnosis for this admission?: YesPlan: inr still not climbing. Got 10mg last night (2) Acute kidney failure with tubular necrosis Is this a current diagnosis for this admission?: Yes
[2016-06-16] MEDS: TAMOXIFEN CITRATE 10 MG TABLET PO SCH ×2 (09:21→17:47)
[2016-06-16] MEDS: LUBIPROSTONE 24 MCG CAPSULE PO SCH ×2 (09:22→17:47)
[2016-06-16] MEDS: VENLAFAXINE HCL 75 MG CAP.SR.24H PO SCH (09:22)
[2016-06-16] MEDS: AMLODIPINE BESYLATE 10 MG TABLET PO SCH (09:22)
[2016-06-16] MEDS: LANSOPRAZOLE 30 MG TAB.RAP.DR PO SCH (09:22)
[2016-06-16] MEDS: ENOXAPARIN SODIUM INJ 100 MG/1 ML DISP.SYRIN SUBCUT SCH (09:23)
[2016-06-16] MEDS: METFORMIN HCL 500 MG TABLET PO SCH ×2 (09:23→16:04)
[2016-06-16] MEDS: WARFARIN SODIUM 5 MG TABLET PO SCH (21:14)
[2016-06-17] MEDS: LEVOTHYROXINE SODIUM 0.15 MG TABLET PO SCH (05:47)
[2016-06-17 06:18] LABS: ANION GAP 8 (5-19); BLOOD UREA NITROGEN 23 mg/dL (7-20); CALCIUM 7.7 mg/dL (8.4-10.2); CARBON DIOXIDE 26 mmol/L (22-30); CHLORIDE 104 mmol/L (98-107); CREATININE RESULT 0.74 mg/dL (0.52-1.25); GLUCOSE 162 mg/dL (75-110); POTASSIUM 4.3 mmol/L (3.6-5.0); SODIUM 137.9 mmol/L (137-145)
[2016-06-17 06:40] LABS: PROTHROMBIN TIME 15.8 SEC (11.4-15.4)
--- NOTE | 2016-06-17 08:11 | PDOC PROGRESS REPORT ---
Subjective Progress Note for:: 06/17/16 Subjective:: L leg swells when up Physical Exam Vital Signs: Temp Pulse Resp BP Pulse Ox 98.9 F 90 16 125/59 L 93 06/17/16 04:04 06/17/16 04:04 06/17/16 04:04 06/17/16 04:04 06/17/16 04:04 Intake & Output 06/16/16 06/17/16 06/18/16 07:59 07:59 07:59 Intake Total 1340 1808 Output Total 900 Balance 440 1808 Weight 212 lb 4.882 oz 211 lb 10.3 oz General appearance: PRESENT: no acute distress Respiratory exam: PRESENT: clear to auscultation denise Cardiovascular exam: ABSENT: diastolic murmur, irregular rhythm, systolic murmur GI/Abdominal exam: ABSENT: mass, organolmegaly, tenderness Extremities exam: PRESENT: pedal edema - L2+ Results Laboratory Results: 06/17/16 05:34 06/17/16 05:34 Sodium 137.9 Potassium 4.3 Chloride 104 Carbon Dioxide 26 Anion Gap 8 BUN 23 H Creatinine 0.74 Est GFR ( Amer) > 60 Est GFR (Non-Af Amer) > 60 Glucose 162 H Calcium 7.7 L Impressions: Chest X-Ray 06/11/16 15:24 IMPRESSION: NO SIGNIFICANT RADIOGRAPHIC FINDING IN THE CHEST. Venous Doppler Study 06/11/16 15:24 IMPRESSION: DIFFUSE DEEP VENOUS THROMBOSIS THROUGHOUT THE LEFT LEG. Knee X-Ray 06/11/16 15:26 IMPRESSION: Total knee arthroplasty. Assessment & Plan - Diagnosis (1) Phlebitis of left femoral vein Is this a current diagnosis for this admission?: YesPlan: inr1.2 on 10mg (2) Acute kidney failure with tubular necrosis Is this a current diagnosis for this admission?: Yes
[2016-06-17] MEDS: TAMOXIFEN CITRATE 10 MG TABLET PO SCH ×2 (10:45→18:04)
[2016-06-17] MEDS: AMLODIPINE BESYLATE 10 MG TABLET PO SCH (10:45)
[2016-06-17] MEDS: LANSOPRAZOLE 30 MG TAB.RAP.DR PO SCH (10:45)
[2016-06-17] MEDS: ENOXAPARIN SODIUM INJ 100 MG/1 ML DISP.SYRIN SUBCUT SCH (10:45)
[2016-06-17] MEDS: VENLAFAXINE HCL 75 MG CAP.SR.24H PO SCH (10:45)
[2016-06-17] MEDS: METFORMIN HCL 500 MG TABLET PO SCH ×2 (10:45→18:03)
[2016-06-17] MEDS: LUBIPROSTONE 24 MCG CAPSULE PO SCH ×2 (10:45→18:05)
[2016-06-17] MEDS: WARFARIN SODIUM 5 MG TABLET PO SCH (21:05)
[2016-06-18] MEDS: LEVOTHYROXINE SODIUM 0.15 MG TABLET PO SCH (05:42)
[2016-06-18 06:34] LABS: PROTHROMBIN TIME 20.7 SEC (11.4-15.4)
[2016-06-18 06:46] LABS: ANION GAP 5 (5-19); BLOOD UREA NITROGEN 20 mg/dL (7-20); CALCIUM 7.9 mg/dL (8.4-10.2); CARBON DIOXIDE 26 mmol/L (22-30); CHLORIDE 105 mmol/L (98-107); CREATININE RESULT 0.71 mg/dL (0.52-1.25); GLUCOSE 148 mg/dL (75-110); POTASSIUM 4.4 mmol/L (3.6-5.0); SODIUM 135.8 mmol/L (137-145)
[2016-06-18] MEDS: METFORMIN HCL 500 MG TABLET PO SCH ×2 (07:30→18:10)
--- NOTE | 2016-06-18 08:02 | PDOC PROGRESS REPORT ---
Subjective Progress Note for:: 06/18/16 Subjective:: pain L foot > leg worse with arcelia wrap Physical Exam Vital Signs: Temp Pulse Resp BP Pulse Ox 98.7 F 65 19 114/53 L 94 06/17/16 19:23 06/18/16 02:00 06/17/16 19:23 06/17/16 19:23 06/17/16 19:23 Intake & Output 06/16/16 06/17/16 06/18/16 07:59 07:59 07:59 Intake Total 1340 1808 360 Output Total 900 Balance 440 1808 360 Weight 212 lb 4.882 oz 211 lb 10.3 oz General appearance: PRESENT: mild distress Respiratory exam: PRESENT: clear to auscultation denise Cardiovascular exam: ABSENT: diastolic murmur, irregular rhythm, systolic murmur GI/Abdominal exam: ABSENT: mass, organolmegaly, tenderness Extremities exam: PRESENT: pedal edema - L2+. devil tender not red Neurological exam: PRESENT: oriented to situation Psychiatric exam: PRESENT: anxious Results Laboratory Results: 06/18/16 06:09 06/18/16 06:09 Sodium 135.8 L Potassium 4.4 Chloride 105 Carbon Dioxide 26 Anion Gap 5 BUN 20 Creatinine 0.71 Est GFR ( Amer) > 60 Est GFR (Non-Af Amer) > 60 Glucose 148 H Calcium 7.9 L Impressions: Chest X-Ray 06/11/16 15:24 IMPRESSION: NO SIGNIFICANT RADIOGRAPHIC FINDING IN THE CHEST. Venous Doppler Study 06/11/16 15:24 IMPRESSION: DIFFUSE DEEP VENOUS THROMBOSIS THROUGHOUT THE LEFT LEG. Knee X-Ray 06/11/16 15:26 IMPRESSION: Total knee arthroplasty. Assessment & Plan - Diagnosis (1) Phlebitis of left femoral vein Is this a current diagnosis for this admission?: YesPlan: INR1.7. Suspect therapeutic by tomorrow. More pain with arcelia. Remove it. Elevate feet wilth bed control. Oxycodone (2) Acute kidney failure with tubular necrosis Is this a current diagnosis for this admission?: Yes
[2016-06-18] MEDS ORDERED: OXYCODONE HCL IR 5 MG TABLET PO ONE (08:30)
[2016-06-18] MEDS: ENOXAPARIN SODIUM INJ 100 MG/1 ML DISP.SYRIN SUBCUT SCH (09:12)
[2016-06-18] MEDS: LUBIPROSTONE 24 MCG CAPSULE PO SCH ×2 (09:14→18:10)
[2016-06-18] MEDS: TAMOXIFEN CITRATE 10 MG TABLET PO SCH ×2 (09:15→18:10)
[2016-06-18] MEDS: LANSOPRAZOLE 30 MG TAB.RAP.DR PO SCH (09:15)
[2016-06-18] MEDS: AMLODIPINE BESYLATE 10 MG TABLET PO SCH (09:15)
[2016-06-18] MEDS: VENLAFAXINE HCL 75 MG CAP.SR.24H PO SCH (09:16)
[2016-06-18] MEDS: OXYCODONE HCL IR 5 MG TABLET PO PRN (13:24)
[2016-06-18] MEDS: ACETAMINOPHEN 325 MG TABLET PO PRN (21:24)
[2016-06-18] MEDS: WARFARIN SODIUM 5 MG TABLET PO SCH (21:24)
[2016-06-19] MEDS: OXYCODONE HCL IR 5 MG TABLET PO PRN ×2 (01:16→22:02)
[2016-06-19 06:07] LABS: PROTHROMBIN TIME 23.9 SEC (11.4-15.4)
[2016-06-19] MEDS: LEVOTHYROXINE SODIUM 0.15 MG TABLET PO SCH (06:09)
[2016-06-19 06:24] LABS: ANION GAP 8 (5-19); BLOOD UREA NITROGEN 16 mg/dL (7-20); CALCIUM 7.9 mg/dL (8.4-10.2); CARBON DIOXIDE 27 mmol/L (22-30); CHLORIDE 101 mmol/L (98-107); GLUCOSE 168 mg/dL (75-110); POTASSIUM 4.5 mmol/L (3.6-5.0); SODIUM 136.2 mmol/L (137-145)
[2016-06-19] MEDS: ACETAMINOPHEN 325 MG TABLET PO PRN (07:45)
[2016-06-19] MEDS: METFORMIN HCL 500 MG TABLET PO SCH ×2 (07:45→17:08)
--- NOTE | 2016-06-19 07:52 | PDOC PROGRESS REPORT ---
Subjective Progress Note for:: 06/19/16 Subjective:: L foot pain worse. Cant stand Physical Exam Vital Signs: Temp Pulse Resp BP Pulse Ox 99.5 F 75 20 133/55 H 93 06/19/16 00:00 06/19/16 02:00 06/19/16 00:00 06/19/16 00:00 06/19/16 00:00 Intake & Output 06/17/16 06/18/16 06/19/16 07:59 07:59 07:59 Intake Total 1808 360 900 Balance 1808 360 900 Weight 211 lb 10.3 oz 217 lb 9.54 oz Results Laboratory Results: 06/19/16 05:50 06/19/16 05:50 Sodium 136.2 L Potassium 4.5 Chloride 101 Carbon Dioxide 27 Anion Gap 8 BUN 16 Creatinine 0.70 Est GFR ( Amer) > 60 Est GFR (Non-Af Amer) > 60 Glucose 168 H Calcium 7.9 L Impressions: Chest X-Ray 06/11/16 15:24 IMPRESSION: NO SIGNIFICANT RADIOGRAPHIC FINDING IN THE CHEST. Venous Doppler Study 06/11/16 15:24 IMPRESSION: DIFFUSE DEEP VENOUS THROMBOSIS THROUGHOUT THE LEFT LEG. Knee X-Ray 06/11/16 15:26 IMPRESSION: Total knee arthroplasty. Assessment & Plan - Diagnosis (1) Phlebitis of left femoral vein Is this a current diagnosis for this admission?: YesPlan: inr2. 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 Foot more edematous than leg. Tender dorsal & palantar, mtp conpression & ankle movements. Denies trauma. Consider gout & cellulitis. Uric acid & Xray. ? cephalothin. (2) Acute kidney failure with tubular necrosis Is this a current diagnosis for this admission?: Yes
[2016-06-19] MEDS: LANSOPRAZOLE 30 MG TAB.RAP.DR PO SCH (09:31)
[2016-06-19] MEDS: LUBIPROSTONE 24 MCG CAPSULE PO SCH ×2 (09:32→17:07)
[2016-06-19] MEDS: AMLODIPINE BESYLATE 10 MG TABLET PO SCH (09:32)
[2016-06-19] MEDS: VENLAFAXINE HCL 75 MG CAP.SR.24H PO SCH (09:34)
[2016-06-19] MEDS: TAMOXIFEN CITRATE 10 MG TABLET PO SCH ×2 (09:34→17:07)
[2016-06-19] MEDS ORDERED: AMPICILLIN SODIUM/SULBACTAM NA 3 GM in NORMAL SALINE 100 ML IV ONE (11:00)
[2016-06-19] MEDS: AMPICILLIN SODIUM/SULBACTAM NA 3 GM in NORMAL SALINE 100 ML IV SCH (17:08)
[2016-06-19] MEDS ORDERED: WARFARIN SODIUM 7.5 MG TABLET PO SCH (22:00)
[2016-06-19] MEDS ORDERED: WARFARIN SODIUM 5 MG TABLET PO SCH (22:00)
[2016-06-20] MEDS: AMPICILLIN SODIUM/SULBACTAM NA 3 GM in NORMAL SALINE 100 ML IV SCH ×3 (02:15→18:02)
[2016-06-20] MEDS: LEVOTHYROXINE SODIUM 0.15 MG TABLET PO SCH (06:27)
--- NOTE | 2016-06-20 08:41 | PDOC PROGRESS REPORT ---
Subjective Progress Note for:: 06/20/16 Subjective:: L foot pain slightly better. Physical Exam Vital Signs: Temp Pulse Resp BP Pulse Ox 97.4 F 95 18 136/65 H 95 06/20/16 07:58 06/20/16 07:58 06/20/16 07:58 06/20/16 07:58 06/20/16 07:58 Intake & Output 06/19/16 06/20/16 06/21/16 07:59 07:59 07:59 Intake Total 900 2940 Output Total 500 Balance 900 2440 Weight 217 lb 9.54 oz 217 lb 6.012 oz General appearance: PRESENT: no acute distress Respiratory exam: PRESENT: clear to auscultation denise Cardiovascular exam: ABSENT: diastolic murmur, irregular rhythm, systolic murmur GI/Abdominal exam: ABSENT: mass, organolmegaly, tenderness Musculoskeletal exam: PRESENT: tenderness - diffuse mild swelling, erythema, warmth, & tenderness L mtp, foot & ankle:dorsal & plantar. No skin breaks. Results Laboratory Results: 06/19/16 05:50 06/17/16 16:30 Stool - Stool - Final 06/17/16 16:30 Stool - Stool Stool Culture - Final NO SALMONELLA, SHIGELLA, CAMPYLOBACTER, OR E.COLI 0157 RECOVERED. NEGATIVE FOR SHIGA TOXINS 1&2. Impressions: Chest X-Ray 06/11/16 15:24 IMPRESSION: NO SIGNIFICANT RADIOGRAPHIC FINDING IN THE CHEST. Venous Doppler Study 06/11/16 15:24 IMPRESSION: DIFFUSE DEEP VENOUS THROMBOSIS THROUGHOUT THE LEFT LEG. Knee X-Ray 06/11/16 15:26 IMPRESSION: Total knee arthroplasty. Foot X-Ray 06/19/16 00:00 IMPRESSION: Soft tissue swelling. No aggressive bony demineralization or periostitis worrisome for osteomyelitis Osteoarthritis as above Assessment & Plan - Diagnosis (1) Phlebitis of left femoral vein Is this a current diagnosis for this admission?: YesPlan: uric5.7. Xray djd intertarsal, tmt, 1mtp. Yesterday unasyn. Will try colcrys today. (2) Acute kidney failure with tubular necrosis Is this a current diagnosis for this admission?: Yes
[2016-06-20] MEDS ORDERED: COLCHICINE 0.6 MG TABLET PO ONE (09:00)
[2016-06-20] MEDS: LANSOPRAZOLE 30 MG TAB.RAP.DR PO SCH (09:37)
[2016-06-20] MEDS: AMLODIPINE BESYLATE 10 MG TABLET PO SCH (09:38)
[2016-06-20] MEDS: METFORMIN HCL 500 MG TABLET PO SCH ×2 (09:38→18:01)
[2016-06-20] MEDS: VENLAFAXINE HCL 75 MG CAP.SR.24H PO SCH (09:39)
[2016-06-20] MEDS: TAMOXIFEN CITRATE 10 MG TABLET PO SCH ×2 (09:39→18:04)
[2016-06-20] MEDS: LUBIPROSTONE 24 MCG CAPSULE PO SCH ×2 (09:39→18:05)
[2016-06-20] MEDS: OXYCODONE HCL IR 5 MG TABLET PO PRN (18:04)
[2016-06-20] MEDS ORDERED: WARFARIN SODIUM 7.5 MG TABLET PO SCH (22:00)
[2016-06-21] MEDS: AMPICILLIN SODIUM/SULBACTAM NA 3 GM in NORMAL SALINE 100 ML IV SCH ×3 (01:09→17:37)
[2016-06-21] MEDS: LEVOTHYROXINE SODIUM 0.15 MG TABLET PO SCH (05:24)
--- NOTE | 2016-06-21 07:00 | PDOC PROGRESS REPORT ---
Subjective Progress Note for:: 06/21/16 Subjective:: L foot improving after unasyn & colchicine. Can stand a little but not get to bath room. Physical Exam Vital Signs: Temp Pulse Resp BP Pulse Ox 98.8 F 87 18 140/82 H 83 L 06/21/16 03:10 06/21/16 03:10 06/21/16 03:10 06/21/16 03:10 06/21/16 03:10 Intake & Output 06/19/16 06/20/16 06/21/16 07:59 07:59 07:59 Intake Total 900 2940 2510 Output Total 500 Balance 900 2440 2510 Weight 217 lb 9.54 oz 217 lb 6.012 oz 219 lb 12.814 oz General appearance: PRESENT: no acute distress Respiratory exam: PRESENT: clear to auscultation denise Cardiovascular exam: ABSENT: diastolic murmur, irregular rhythm, systolic murmur GI/Abdominal exam: ABSENT: mass, organolmegaly, tenderness Musculoskeletal exam: PRESENT: other - L ankle & mtp less tender. Erythema more localized to ankle dorsum & arch Results Laboratory Results: 06/19/16 05:50 Impressions: Chest X-Ray 06/11/16 15:24 IMPRESSION: NO SIGNIFICANT RADIOGRAPHIC FINDING IN THE CHEST. Venous Doppler Study 06/11/16 15:24 IMPRESSION: DIFFUSE DEEP VENOUS THROMBOSIS THROUGHOUT THE LEFT LEG. Knee X-Ray 06/11/16 15:26 IMPRESSION: Total knee arthroplasty. Foot X-Ray 06/19/16 00:00 IMPRESSION: Soft tissue swelling. No aggressive bony demineralization or periostitis worrisome for osteomyelitis Osteoarthritis as above Assessment & Plan - Diagnosis (1) Phlebitis of left femoral vein Is this a current diagnosis for this admission?: YesPlan: inr (2) Acute kidney failure with tubular necrosis Is this a current diagnosis for this admission?: Yes (3) Cellulitis of left foot Is this a current diagnosis for this admission?: YesPlan: continue unasyn
[2016-06-21 07:08] LABS: PROTHROMBIN TIME 33.3 SEC (11.4-15.4)
[2016-06-21] MEDS: METFORMIN HCL 500 MG TABLET PO SCH ×2 (08:01→17:33)
[2016-06-21] MEDS: AMLODIPINE BESYLATE 10 MG TABLET PO SCH (10:31)
[2016-06-21] MEDS: LANSOPRAZOLE 30 MG TAB.RAP.DR PO SCH (10:31)
[2016-06-21] MEDS: LUBIPROSTONE 24 MCG CAPSULE PO SCH ×2 (10:32→17:34)
[2016-06-21] MEDS: VENLAFAXINE HCL 75 MG CAP.SR.24H PO SCH (10:32)
[2016-06-21] MEDS: TAMOXIFEN CITRATE 10 MG TABLET PO SCH ×2 (10:32→17:34)
[2016-06-21] MEDS ORDERED: WARFARIN SODIUM 5 MG TABLET PO SCH (22:00)
[2016-06-21] MEDS: ACETAMINOPHEN 325 MG TABLET PO PRN (22:49)
[2016-06-22] MEDS: AMPICILLIN SODIUM/SULBACTAM NA 3 GM in NORMAL SALINE 100 ML IV SCH ×3 (02:32→18:19)
[2016-06-22] MEDS: LEVOTHYROXINE SODIUM 0.15 MG TABLET PO SCH (05:17)
[2016-06-22 06:29] LABS: PROTHROMBIN TIME 41.4 SEC (11.4-15.4)
--- NOTE | 2016-06-22 06:58 | PDOC PROGRESS REPORT ---
Subjective Progress Note for:: 06/22/16 Subjective:: sore throat productive cough. Less Lfoot pain. Planning walk to bathroom Physical Exam Vital Signs: Temp Pulse Resp BP Pulse Ox 98.0 F 80 22 H 148/59 H 95 06/22/16 05:16 06/22/16 05:16 06/22/16 05:16 06/22/16 05:16 06/22/16 05:16 Intake & Output 06/20/16 06/21/16 06/22/16 07:59 07:59 07:59 Intake Total 2940 2510 1650 Output Total 500 Balance 2440 2510 1650 Weight 217 lb 6.012 oz 219 lb 12.814 oz 219 lb 12.814 oz General appearance: PRESENT: no acute distress Respiratory exam: PRESENT: clear to auscultation denise Cardiovascular exam: ABSENT: diastolic murmur, irregular rhythm, systolic murmur GI/Abdominal exam: ABSENT: mass, organolmegaly, tenderness Musculoskeletal exam: PRESENT: tenderness - L ankle & foot less tender & pink but still swollen & warm Results Laboratory Results: 06/19/16 05:50 Abnormal - 24 hr 06/21/16 06/21/16 06/22/16 06:42 12:28 05:56 PT 33.3 H 41.4 H POC Glucose 128 H Impressions: Chest X-Ray 06/11/16 15:24 IMPRESSION: NO SIGNIFICANT RADIOGRAPHIC FINDING IN THE CHEST. Venous Doppler Study 06/11/16 15:24 IMPRESSION: DIFFUSE DEEP VENOUS THROMBOSIS THROUGHOUT THE LEFT LEG. Knee X-Ray 06/11/16 15:26 IMPRESSION: Total knee arthroplasty. Foot X-Ray 06/19/16 00:00 IMPRESSION: Soft tissue swelling. No aggressive bony demineralization or periostitis worrisome for osteomyelitis Osteoarthritis as above Assessment & Plan - Diagnosis (1) Phlebitis of left femoral vein Is this a current diagnosis for this admission?: YesPlan: inr4.1 inspite of dose reduction. Hold warfarin. (2) Acute kidney failure with tubular necrosis Is this a current diagnosis for this admission?: Yes (3) Cellulitis of left foot Is this a current diagnosis for this admission?: YesPlan: d4 unasyn. 3 more days
[2016-06-22] MEDS: METFORMIN HCL 500 MG TABLET PO SCH ×2 (10:51→16:32)
[2016-06-22] MEDS: LANSOPRAZOLE 30 MG TAB.RAP.DR PO SCH (10:51)
[2016-06-22] MEDS: LUBIPROSTONE 24 MCG CAPSULE PO SCH ×2 (10:51→18:20)
[2016-06-22] MEDS: VENLAFAXINE HCL 75 MG CAP.SR.24H PO SCH (10:51)
[2016-06-22] MEDS: TAMOXIFEN CITRATE 10 MG TABLET PO SCH ×2 (10:51→18:20)
[2016-06-22] MEDS: AMLODIPINE BESYLATE 10 MG TABLET PO SCH (10:51)
[2016-06-23] MEDS: AMPICILLIN SODIUM/SULBACTAM NA 3 GM in NORMAL SALINE 100 ML IV SCH ×3 (01:06→18:18)
[2016-06-23] MEDS: LEVOTHYROXINE SODIUM 0.15 MG TABLET PO SCH (05:32)
[2016-06-23 07:27] LABS: PROTHROMBIN TIME 42.5 SEC (11.4-15.4)
--- NOTE | 2016-06-23 07:59 | PDOC PROGRESS REPORT ---
Subjective Progress Note for:: 06/23/16 Subjective:: can walk on L foot Physical Exam Vital Signs: Temp Pulse Resp BP Pulse Ox 98.2 F 78 20 135/57 H 97 06/22/16 20:00 06/23/16 02:00 06/22/16 20:00 06/22/16 20:00 06/22/16 20:00 Intake & Output 06/21/16 06/22/16 06/23/16 07:59 07:59 07:59 Intake Total 2510 1650 1350 Output Total 800 Balance 2510 1650 550 Weight 219 lb 12.814 oz 219 lb 12.814 oz General appearance: PRESENT: no acute distress Respiratory exam: PRESENT: clear to auscultation denise Cardiovascular exam: ABSENT: diastolic murmur, irregular rhythm, systolic murmur GI/Abdominal exam: ABSENT: tenderness Extremities exam: PRESENT: pedal edema - L Musculoskeletal exam: ABSENT: tenderness - L foot no longer pink or tender Results Laboratory Results: 06/19/16 05:50 Abnormal - 24 hr Labs- All tests 24 hr 06/23/16 06:47 PT 42.5 H INR 4.19 Impressions: Chest X-Ray 06/11/16 15:24 IMPRESSION: NO SIGNIFICANT RADIOGRAPHIC FINDING IN THE CHEST. Venous Doppler Study 06/11/16 15:24 IMPRESSION: DIFFUSE DEEP VENOUS THROMBOSIS THROUGHOUT THE LEFT LEG. Knee X-Ray 06/11/16 15:26 IMPRESSION: Total knee arthroplasty. Foot X-Ray 06/19/16 00:00 IMPRESSION: Soft tissue swelling. No aggressive bony demineralization or periostitis worrisome for osteomyelitis Osteoarthritis as above Assessment & Plan - Diagnosis (1) Phlebitis of left femoral vein Is this a current diagnosis for this admission?: YesPlan: hold warfarin a second day (2) Acute kidney failure with tubular necrosis Is this a current diagnosis for this admission?: Yes (3) Cellulitis of left foot Is this a current diagnosis for this admission?: YesPlan: 3 more days unasyn
[2016-06-23] MEDS: LANSOPRAZOLE 30 MG TAB.RAP.DR PO SCH (11:17)
[2016-06-23] MEDS: AMLODIPINE BESYLATE 10 MG TABLET PO SCH (11:17)
[2016-06-23] MEDS: VENLAFAXINE HCL 75 MG CAP.SR.24H PO SCH (11:18)
[2016-06-23] MEDS: TAMOXIFEN CITRATE 10 MG TABLET PO SCH ×2 (11:18→18:17)
[2016-06-23] MEDS: METFORMIN HCL 500 MG TABLET PO SCH ×2 (11:19→18:17)
[2016-06-23] MEDS: LUBIPROSTONE 24 MCG CAPSULE PO SCH ×2 (11:20→18:19)
[2016-06-24] MEDS: AMPICILLIN SODIUM/SULBACTAM NA 3 GM in NORMAL SALINE 100 ML IV SCH ×2 (02:46→10:29)
--- NOTE | 2016-06-24 06:22 | PDOC DISCHARGE SUMMARY ---
General - Admit/Disc Date/PCP Admission Date/Primary Care Provider: 06/12/16 00:04 NERY JENSEN MD Discharge Date: 06/24/16 - Discharge Diagnosis (1) Phlebitis of left femoral vein Is this a current diagnosis for this admission?: Yes (2) Acute kidney failure with tubular necrosis Is this a current diagnosis for this admission?: Yes (3) Cellulitis of left foot Is this a current diagnosis for this admission?: Yes - Additional Information Resuscitation Status: Full Code Discharge Diet: Diabetic Discharge Activity: Keep Legs Elevated Home Medications: Omeprazole 20 mg PO DAILY 06/11/16 Valsartan/Hydrochlorothiazide [Valsartan-Hctz 320-25 mg Tab] 1 tab PO DAILY 04/25 Venlafaxine HCl [Venlafaxine HCl ER] 150 mg PO DAILY 06/11/16 Amlodipine Besylate [Norvasc 10 mg Tablet] 10 mg PO DAILY #30 tablet 06/19/16 Levothyroxine Sodium [Synthroid] 150 mcg PO DAILY #30 tablet 06/19/16 Metformin HCl [Metformin HCl ER] 2,000 mg PO QPM #120 06/19/16 Acetaminophen [Tylenol 325 mg Tablet] 650 mg PO Q6HP PRN #0 tablet 06/24/16 Warfarin Sodium [Coumadin] 5 mg PO DAILY #90 tablet 06/24/16 History of Present Illness Patient complains of: L leg swelling History of Present Illness: GARCIA TRINIDAD is a 86 year old female with new L leg swelling & pain & inablility to walk. Extensive dvt in ER. Hospital Course Hospital Course: L leg pain & swelling improved on lovenox and coumadin. INR was slow to climb. Dose was increased to 10mg in stages. INR went up to 4.2, and coumadin was held 2d. Her L foot became warm, pink and tender from mtp to ankle & arch. She could not walk. Uric acid was 5.8. Colchicine made no dramatic difference. All of this went away on unasyn for 5d. Tamaxifen was near the 5y supriya and was stopped. Physical Exam Vital Signs: Temp Pulse Resp BP Pulse Ox 98.2 F 80 21 H 140/67 H 93 06/24/16 04:00 06/24/16 04:00 06/24/16 04:00 06/24/16 04:00 06/24/16 04:00 Intake & Output 06/22/16 06/23/16 06/24/16 07:59 07:59 07:59 Intake Total 1650 1350 200 Output Total 800 Balance 1650 550 200 Weight 219 lb 12.814 oz General appearance: PRESENT: no acute distress Respiratory exam: PRESENT: wheezes - mild Cardiovascular exam: ABSENT: diastolic murmur, irregular rhythm, systolic murmur GI/Abdominal exam: ABSENT: mass, organolmegaly, tenderness Extremities exam: PRESENT: pedal edema - L 1+ Neurological exam: PRESENT: oriented to situation Psychiatric exam: PRESENT: appropriate affect Results Laboratory Results: 06/19/16 05:50 Labs- Last Values WBC 11.8 10^3/uL (4.0-10.5) H 06/11/16 15:35 RBC 3.77 10^6/uL (3.72-5.28) 06/11/16 15:35 Hgb 11.4 g/dL (12.0-15.5) L 06/11/16 15:35 Hct 34.7 % (36.0-47.0) L 06/11/16 15:35 MCV 92 fl (80-97) 06/11/16 15:35 MCH 30.3 pg (27.0-33.4) 06/11/16 15:35 MCHC 32.9 g/dL (32.0-36.0) 06/11/16 15:35 RDW 14.1 % (11.5-14.0) H 06/11/16 15:35 Plt Count 219 10^3/uL (150-450) 06/11/16 15:35 Seg Neutrophils % 82.0 % (42-78) H 06/11/16 15:35 Lymphocytes % 8.7 % (13-45) L 06/11/16 15:35 Monocytes % 7.8 % (3-13) 06/11/16 15:35 Eosinophils % 0.7 % (0-6) 06/11/16 15:35 Basophils % 0.8 % (0-2) 06/11/16 15:35 Absolute Neutrophils 9.7 10^3/uL (1.7-8.2) H 06/11/16 15:35 Absolute Lymphocytes 1.0 10^3/uL (0.5-4.7) 06/11/16 15:35 Absolute Monocytes 0.9 10^3/uL (0.1-1.4) 06/11/16 15:35 Absolute Eosinophils 0.1 10^3/uL (0.0-0.6) 06/11/16 15:35 Absolute Basophils 0.1 10^3/uL (0.0-0.2) 06/11/16 15:35 PT 42.5 SEC (11.4-15.4) H 06/23/16 06:47 INR 4.19 06/23/16 06:47 APTT 25.8 SEC (23.5-35.8) 06/11/16 15:35 Sodium 136.2 mmol/L (137-145) L 06/19/16 05:50 Potassium 4.5 mmol/L (3.6-5.0) 06/19/16 05:50 Chloride 101 mmol/L (98-107) 06/19/16 05:50 Carbon Dioxide 27 mmol/L (22-30) 06/19/16 05:50 Anion Gap 8 (5-19) 06/19/16 05:50 BUN 16 mg/dL (7-20) 06/19/16 05:50 Creatinine 0.70 mg/dL (0.52-1.25) 06/19/16 05:50 Est GFR ( Amer) > 60 (>60) 06/19/16 05:50 Est GFR (Non-Af Amer) > 60 (>60) 06/19/16 05:50 Glucose 168 mg/dL (75-110) H 06/19/16 05:50 POC Glucose 128 mg/dL (70-110) H 06/21/16 12:28 Uric Acid 5.8 mg/dL (2.5-7.5) 06/19/16 05:50 Calcium 7.9 mg/dL (8.4-10.2) L 06/19/16 05:50 Total Bilirubin 0.6 mg/dL (0.2-1.3) 06/11/16 15:35 Direct Bilirubin 0.4 mg/dL (0.0-0.4) 06/11/16 15:35 Indirect Bilirubin Not Reportable 06/11/16 15:35 Neonat Total Bilirubin Not Reportable 06/11/16 15:35 AST 23 U/L (14-36) 06/11/16 15:35 ALT 25 U/L (9-52) 06/11/16 15:35 Alkaline Phosphatase 63 U/L (38-126) 06/11/16 15:35 Creatine Kinase 35 U/L (30-135) 06/11/16 15:35 CK-MB (CK-2) 1.03 ng/mL (<4.55) 06/11/16 15:35 Troponin I 0.024 ng/mL 06/11/16 15:35 NT-Pro-B Natriuret Pep 833 pg/mL (<450) H 06/11/16 15:35 Total Protein 6.4 g/dL (6.3-8.2) 06/11/16 15:35 Albumin 3.5 g/dL (3.5-5.0) 06/11/16 15:35 Stool Occult Blood NEGATIVE (NEGATIVE) 06/11/16 17:19 C. difficile Tox (PCR) NEGATIVE (NEGATIVE) 06/17/16 16:30 Impressions: Chest X-Ray 06/11/16 15:24 IMPRESSION: NO SIGNIFICANT RADIOGRAPHIC FINDING IN THE CHEST. Venous Doppler Study 06/11/16 15:24 IMPRESSION: DIFFUSE DEEP VENOUS THROMBOSIS THROUGHOUT THE LEFT LEG. Knee X-Ray 06/11/16 15:26 IMPRESSION: Total knee arthroplasty. Foot X-Ray 06/19/16 00:00 IMPRESSION: Soft tissue swelling. No aggressive bony demineralization or periostitis worrisome for osteomyelitis Osteoarthritis as above Qualifiers PATEINT BEING DISCHARGED WITH ANY OF THE FOLLOWING DIAGNOSIS?: VTE (PE or DVT) VTE patient discharged on overlapping Therapy?: Yes Plan Discharge Plan: Home. 2d INR,ov
[2016-06-24 06:56] LABS: PROTHROMBIN TIME 36.6 SEC (11.4-15.4)
[2016-06-24] MEDS: METFORMIN HCL 500 MG TABLET PO SCH (08:24)
[2016-06-24] MEDS ORDERED: LEVOTHYROXINE SODIUM 0.15 MG TABLET PO SCH (10:00)
[2016-06-24] MEDS: LUBIPROSTONE 24 MCG CAPSULE PO SCH (10:26)
[2016-06-24] MEDS: AMLODIPINE BESYLATE 10 MG TABLET PO SCH (10:26)
[2016-06-24] MEDS: LANSOPRAZOLE 30 MG TAB.RAP.DR PO SCH (10:27)
[2016-06-24] MEDS: VENLAFAXINE HCL 75 MG CAP.SR.24H PO SCH (10:27)
[2016-06-24] MEDS: TAMOXIFEN CITRATE 10 MG TABLET PO SCH (10:29)
[2016-06-24 11:05] VITALS: BP 140/67
== END 2016-06-24 11:50 | disposition home health service (06) | DRG 294 ==
LOC: ER 14:27 → EH 17:51 → UNDOADMOB 17:51 → OBSVTOIN 17:51 → INTOOBSV 17:51 → 5 23:22 → EH 23:22 → OBSVTOIN 06-12 00:04 → 5 06-12 00:04
PROVIDERS: ADMIT Family Medicine; ATTEND Family Medicine
DX: I80.12 Phlebitis and thrombophlebitis of left femoral vein (principal); N17.0 Acute kidney failure with tubular necrosis; L03.116 Cellulitis of left lower limb; I10 Essential (primary) hypertension; M79.89 Other specified soft tissue disorders; E10.9 Type 1 diabetes mellitus without complications; K58.0 Irritable bowel syndrome with diarrhea; K64.4 Residual hemorrhoidal skin tags; Z96.652 Presence of left artificial knee joint; Z87.891 Personal history of nicotine dependence; Z79.810 Long term (current) use of selective estrogen receptor modulators (SERMs); Z85.3 Personal history of malignant neoplasm of breast; Z90.13 Acquired absence of bilateral breasts and nipples
CPT/HCPCS: 36415; 71020; 80048; 80053; 82272; 82550; 82553; 82962; 83880; 84484; 84550; 85025; 85610; 85730; 87045; 87205; 87493; 93005; 93010; 93971; 99291; J0295; J1650; J3490

== ENCOUNTER 2016-07-30 13:22 | Inpatient (IN) | payer MEDICARE ==
--- NOTE | 2016-07-30 13:52 | ER Document Report ---
ED Respiratory Problem - General Chief Complaint: Shortness Of Breath Stated Complaint: DIFFICULTY BREATHING Time Seen by Provider: 07/30/16 13:27 Information source: Patient Notes: Patient is an 86-year-old female with past medical history as recorded who presents today with the onset around 2 days ago of a productive cough of yellow/ garza phlegm and a low-grade fever. She denies any nausea, vomiting, or diarrhea. Patient denies any chest pain. She denies any recent calf pain or leg swelling above baseline. Patient was discharged recently after an extensive stay secondary to left foot cellulitis with phlebitis and acute kidney injury. Patient is currently on Xarelto after being recently switched from Coumadin. TRAVEL OUTSIDE OF THE [place] IN LAST 30 DAYS: No - HPI Patient complains to provider of: Cough, Short of breath Onset: Other - See above Quality of pain: No pain Severity: Moderate Pain Level: Denies Context: DVT Short of Breath: Moderate Cough: Productive Sputum amount: Moderate Sputum color: Yellow Associated symptoms: Other - See above Similar symptoms previously: No Recently seen / treated by doctor: Yes - Related Data Allergies/Adverse Reactions: bupropion HCl [From Wellbutrin] Allergy (Intermediate, Verified 06/11/16 14:51) hallucination,diarrhea Past Medical History - General Information source: Patient - Social History Smoking Status: Unknown if Ever Smoked Cigarette use (# per day): No Chew tobacco use (# tins/day): No Smoking Education Provided: No Frequency of alcohol use: None Drug Abuse: None Family History: Hypertension, Malignancy Patient has suicidal ideation: No Patient has homicidal ideation: No - Past Medical History Cardiac Medical History: Reports: Hx Congestive Heart Failure - diastolic wtih stiffness last year, Hx Hypertension - medicated Denies: Hx Coronary Artery Disease, Hx Heart Attack Pulmonary Medical History: Reports: Hx Bronchitis - 2006 chronic bronchitis Denies: Hx Asthma, Hx COPD, Hx Pneumonia Neurological Medical History: Denies: Hx Cerebrovascular Accident, Hx Seizures Endocrine Medical History: Reports: Hx Diabetes Mellitus Type 1, Hx Diabetes Mellitus Type 2 Renal/ Medical History: Denies: Hx Peritoneal Dialysis Malignancy Medical History: Reports: Hx Breast Cancer - 2002 GI Medical History: Reports: Hx Gastroesophageal Reflux Disease - barretts, Hx Hiatal Hernia, Hx Irritable Bowel, Hx Endoscopy. Denies: Hx Hepatitis, Hx Ulcer Musculoskeltal Medical History: Reports Hx Arthritis Psychiatric Medical History: Reports: Hx Depression Infectious Medical History: Denies: Hx Hepatitis Past Surgical History: Reports: Hx Hysterectomy, Hx Mastectomy - apr 2011 denise/ no restrictions, Hx Orthopedic Surgery - Left knee replacement laminectomy, Other. Denies: Hx Open Heart Surgery, Hx Pacemaker - Immunizations Hx Diphtheria, Pertussis, Tetanus Vaccination: Yes Hx Pneumococcal Vaccination: 11/11/10 Review of Systems - Review of Systems Constitutional: Fever EENT: Nose congestion. denies: Eye discharge, Nose discharge Cardiovascular: denies: Chest pain, Palpitations Respiratory: Short of breath. denies: Hurts to breathe, Hemoptysis Gastrointestinal: denies: Abdominal pain, Vomiting Genitourinary: denies: Dysuria Skin: Other - no hives. denies: Rash Neurological/Psychological: Other - no slurred speech -: Yes All other systems reviewed and negative Physical Exam - Vital signs Vitals: Temp Pulse Resp BP Pulse Ox 99 F 18 L 15 129/89 H 99 07/30/16 13:33 07/30/16 13:33 07/30/16 13:33 07/30/16 13:33 07/30/16 13:33 Notes: Reviewed vital signs and nursing note as charted by RN. CONSTITUTIONAL: Alert and oriented and responds appropriately to questions. Well -appearing; well-nourished HEAD: Normocephalic; atraumatic NECK: Supple without meningismus; non-tender; no cervical lymphadenopathy, no masses CARD: Regular rate and rhythm; no murmurs, no clicks, no rubs, no gallops; symmetric distal pulses RESP: Normal chest excursion without splinting or tachypnea; breath sounds clear and equal bilaterally with no obvious rhonchi, Rales or wheezing present. ABD/GI: Normal bowel sounds; non-distended; soft, non-tender BACK: The back appears normal and is non-tender to palpation, there is no CVA tenderness EXT: Patient currently has no swelling or erythema to the left foot, calf, or legs. Normal color and sensation. SKIN: Normal color for age and race; warm; dry; good turgor; capillary refill < 2 seconds; no acute lesions noted NEURO: Moves all extremities equally; Motor and sensory function intact PSYCH: The patient's mood and manner are appropriate. Grooming and personal hygiene are appropriate. Course - Re-evaluation Re-evalutation: 07/30/16 13:51 Given the history and physical examination with recent discharge from the hospital with a low-grade fever, cough, productive, denying any and all chest pain, I would initially evaluate for a hospital-acquired pneumonia. If this is unremarkable, despite the patient not having chest pain, I will most likely have to evaluate for possible extension of the previous clot into a pulmonary embolism. Patient does complain also of a sore throat. She has no anterior neck swelling , erythema, or induration. Very minimal posterior pharyngeal erythema with a midline uvula. Rapid strep has been ordered. Patient states that 2 days ago is when she switched from the Coumadin to the Xarelto. Patient states she did take her Xarelto tablet this morning. EKG shows a heart rate of 83, patient appears to have possibly a second-degree Mobitz type II over third-degree heart block with a narrow ventricular QRS. Old EKG from June 13, 2016 shows a very similar appearing EKG to today. It was read as a wandering pacemaker. 07/30/16 14:42 Signs as recorded. Incorrect temperature placed. Labs as recorded. X-ray of the chest shows no obvious pneumonia. Patient is pain-free at this time. Given the above history and physical examination, we will obtain a CTA of the chest. Given the elevated lactic acid, I have ordered antibiotics as well as fluids. Patient's creatinine is normal on this visit. 07/30/16 16:53 Repeat EKG shows a heart rate of 70, normal sinus rhythm, persistent left axis deviation, no obvious ST elevation or depression. Possible PACs present. There is no obvious prolongation of the MS interval. Pt is being taken to CT scan at this time. Patient is very received antibiotics and a liter of fluid. Pressure was stable. Patient has been afebrile. Patient had a slight reaction to the vancomycin, so we converted the vancomycin to Rocephin. 07/30/16 17:34 Patient has returned from CT scan with the CT scan as recorded. Patient appears to have pulmonary emboli to the right lung. Patient's INR is around 2. PTT is pending. I have paged the patient's primary care physician Dr. Mckeon , who is being covered by another physician. 07/30/16 17:[address] Underwood, the vascular surgeon, who states he has the capability to perform a filter if needed. I have gone over the patient's INR and Xarelto medications with Dr. Underwood who does not have any suggestions for coagulation as he believes the patient is already anticoagulated. I will discuss this with the primary care physician who will admit the patient. Dr. Potter is covering now for PCP Dr. Mckeon. I did review the ultrasound report from previous admission with vascular surgeon Dr. Underwood. showing extensive clot. He recommended repeat dopplar which I have ordered. - Vital Signs Vital signs: Temp Pulse Resp BP Pulse Ox 99 F 92 23 H 101/78 98 07/30/16 13:33 07/30/16 14:49 07/30/16 18:01 07/30/16 18:01 07/30/16 18:01 - Laboratory Result Diagrams: 07/30/16 14:09 07/30/16 14:09 Laboratory results interpreted by me: 07/30/16 07/30/16 07/30/16 14:09 14:09 14:09 Hgb 11.0 L Hct 34.2 L RDW 17.2 H Lymphocytes % 11.8 L PT APTT Sodium 135.1 L Carbon Dioxide 21 L Est GFR (Non-Af Amer) 54 L Glucose 202 H Lactic Acid 5.2 H 07/30/16 07/30/16 17:03 17:03 Hgb Hct RDW Lymphocytes % PT 23.8 H APTT 37.9 H Sodium Carbon Dioxide Est GFR (Non-Af Amer) Glucose Lactic Acid Critical Care Note - Critical Care Note Total time excluding time spent on procedures (mins): 40 Discharge - Discharge Clinical Impression: Pulmonary embolism Qualifiers: Pulmonary embolism type: other Chronicity: acute Acute cor pulmonale presence: without acute cor pulmonale Qualified Code(s): I26.99 - Other pulmonary embolism without acute cor pulmonale Condition: Serious Disposition: ADMITTED INPATIENT Admitting Provider: Hospitalist Unit Admitted: IMCU Referrals: NERY MCKEON MD [Primary Care Provider] - Follow up as needed
[2016-07-30 14:31] LABS: ABSOLUTE LYMPHOCYTES (AUTO) 0.9 10^3/uL (0.5-4.7); ABSOLUTE MONOCYTES (AUTO) 0.8 10^3/uL (0.1-1.4); ABSOLUTE NEUT (AUTO) 5.8 10^3/uL (1.7-8.2); BASOPHILS % (AUTO) 0.4 % (0-2); EOSINOPHILS % (AUTO) 0.3 % (0-6); HEMATOCRIT 34.2 % (36.0-47.0); HGB HCT DIFFERENCE -1.2; LYMPHOCYTES % (AUTO) 11.8 % (13-45); MEAN CORPUSCULAR HEMOGLOBIN 29.3 pg (27.0-33.4); MEAN CORPUSCULAR HGB CONC 32.2 g/dL (32.0-36.0); MEAN CORPUSCULAR VOLUME 91 fl (80-97); MONOCYTES % (AUTO) 10.6 % (3-13); RED BLOOD COUNT 3.75 10^6/uL (3.72-5.28); RED CELL DISTRIBUTION WIDTH 17.2 % (11.5-14.0); SEGMENTED NEUTROPHILS % (AUTO) 76.9 % (42-78); WHITE BLOOD COUNT 7.5 10^3/uL (4.0-10.5)
[2016-07-30 14:48] LABS: ANION GAP 16 (5-19); BLOOD UREA NITROGEN 16 mg/dL (7-20); CALCIUM 8.7 mg/dL (8.4-10.2); CARBON DIOXIDE 21 mmol/L (22-30); CHLORIDE 98 mmol/L (98-107); CREATININE RESULT 0.98 mg/dL (0.52-1.25); GLUCOSE 202 mg/dL (75-110); POTASSIUM 4.3 mmol/L (3.6-5.0); SODIUM 135.1 mmol/L (137-145)
--- NOTE | 2016-07-30 14:50 | RADIOLOGY REPORT (SQ) ---
EXAM DESCRIPTION: CHEST PA/LAT COMPLETED DATE/TIME: 07/30/2016 2:36 pm REASON FOR STUDY: 20, fever, cough, sob COMPARISON: 06/11/2016 EXAM PARAMETERS: NUMBER OF VIEWS: two views TECHNIQUE: Digital Frontal and Lateral radiographic views of the chest acquired. RADIATION DOSE: NA LIMITATIONS: none FINDINGS: LUNGS AND PLEURA: No opacities, masses or pneumothorax. No pleural effusion. MEDIASTINUM AND HILAR STRUCTURES: No masses or contour abnormalities. HEART AND VASCULAR STRUCTURES: Heart normal size. No evidence for failure. BONES: No acute findings. HARDWARE: None in the chest. OTHER: No other significant finding. IMPRESSION: NO SIGNIFICANT RADIOGRAPHIC FINDING IN THE CHEST. TECHNICAL DOCUMENTATION: JOB ID: [id number] [employer]- All Rights Reserved
[2016-07-30] MEDS ORDERED: NORMAL SALINE 1000 ML 1,000 ML IV ONE (14:55)
[2016-07-30] MEDS ORDERED: PIPERACILLIN/TAZOBACTAM 3.375 GM VIAL IV ONE (14:56)
[2016-07-30] MEDS ORDERED: VANCOMYCIN HCL INJ 1000 MG VIAL IV ONE (14:56)
[2016-07-30] MEDS ORDERED: ASPIRIN 325 MG TABLET PO ONE (16:13)
--- NOTE | 2016-07-30 17:04 | EKG REPORT ---
SEVERITY:- ABNORMAL ECG - ATRIAL FIBRILLATION, V-RATE 62-100 LEFT ANTERIOR FASCICULAR BLOCK CONSIDER LEFT VENTRICULAR HYPERTROPHY : Confirmed by: Yudy Lockwood MD 30-Jul-2016 17:03:53
[2016-07-30 17:20] LABS: APPEARANCE,URINE SLIGHTLY-CLOUDY; BILIRUBIN,URINE NEGATIVE (NEGATIVE); GLUCOSE, URINE NEGATIVE (NEGATIVE); KETONES,URINE NEGATIVE (NEGATIVE); LEUKOCYTE ESTERASE,URINE NEGATIVE (NEGATIVE); NITRITE,URINE NEGATIVE (NEGATIVE); PROTEIN,URINE NEGATIVE (NEGATIVE); URINE SPECIFIC GRAVITY 1.012; UROBILINOGEN,URINE NEGATIVE mg/dL (<2.0)
[2016-07-30 17:29] LABS: PROTHROMBIN TIME 23.8 SEC (11.4-15.4)
--- NOTE | 2016-07-30 17:29 | RADIOLOGY REPORT (SQ) ---
EXAM DESCRIPTION: CTA CHEST COMPLETED DATE/TIME: 07/30/2016 5:19 pm REASON FOR STUDY: 20, SOB, recent DVT COMPARISON: None. TECHNIQUE: CT scan of the chest performed using helical scanning technique with dynamic intravenous contrast injection. Images reviewed with lung, soft tissue and bone windows. Reconstructed coronal and sagittal MPR images reviewed. Additional 3 dimensional post-processing performed to develop Maximal Intensity Projection images (MN P). All images stored on PACS. All CT scanners at this facility use dose modulation, iterative reconstruction, and/or weight based d osing when appropriate to reduce radiation dose to as low as reasonably achievable (ALARA). [facility]: Dose Right [facility]: CareDose [facility]: Dose Right [facility]: Teradose 4D [facility]: Lessonwriter CONTRAST TYPE AND DOSE: contrast/concentration: Isovue 370.00 mg/ml; Total Contrast Delivered: 77.0 ml; Total Saline Delivered: 100.0 ml RENAL FUNCTION: BUN 16, creatinine 0.98 RADIATION DOSE: 37.73 . LIMITATIONS: None. FINDINGS: LUNGS AND PLEURA: Scattered bilateral opacities are consistent with atelectasis. There is a calcified granuloma in the left base. AORTA AND GREAT VESSELS: No aneurysm or dissection. HEART: No pericardial effusion. PULMONARY ARTERIES: There is pulmonary embolus noted in the segmental branch of the right lower lobe and poor opacification of subsegmental branches most likely secondary to thrombus as well. HILAR AND MEDIASTINAL STRUCTURES: No identified masses or abnormal nodes. HARDWARE: None in the chest. UPPER ABDOMEN: There is a left adrenal lesion most consistent with adenoma. THYROID AND OTHER SOFT TISSUES: No masses. No adenopathy. BONES: No acute or significant finding. 3D MIPS: Confirm above findings. OTHER: No other significant finding. IMPRESSION: Right-sided pulmonary emboli in the right lower lobe segmental artery and subsegmental b ranches as well. TECHNICAL DOCUMENTATION: JOB ID: [id number] Quality ID # [id number]: Final reports with documentation of one or more dose reduction techniques (e.g., Au tomated exposure control, adjustment of the mA and/or kV according to patient size, use of iterative reconstruction technique) 2010 [employer]- All Rights Reserved
[2016-07-30] MEDS ORDERED: CEFTRIAXONE RTU 1 GM/D5W 50 ML IV ONE (18:00)
[2016-07-30] MEDS ORDERED: CEFTRIAXONE 1 GM/D5W RTU 1 GM/50 ML RTUPB IV ONE (18:04)
[2016-07-30] MEDS ORDERED: MAG HYDROX/AL HYDROX/SIMETH SUSP 30 ML UDCUP PO PRN (19:39)
[2016-07-30] MEDS ORDERED: NORMAL SALINE 1000 ML 1,000 ML IV SCH (19:45)
[2016-07-30 20:09] LABS: ABSOLUTE LYMPHOCYTES (AUTO) 1.2 10^3/uL (0.5-4.7); ABSOLUTE MONOCYTES (AUTO) 0.9 10^3/uL (0.1-1.4); ABSOLUTE NEUT (AUTO) 4.1 10^3/uL (1.7-8.2); BASOPHILS % (AUTO) 0.5 % (0-2); EOSINOPHILS % (AUTO) 0.3 % (0-6); HEMOGLOBIN 10.7 g/dL (12.0-15.5); HGB HCT DIFFERENCE -1.9; LYMPHOCYTES % (AUTO) 19.9 % (13-45); MEAN CORPUSCULAR HEMOGLOBIN 29.1 pg (27.0-33.4); MEAN CORPUSCULAR HGB CONC 31.6 g/dL (32.0-36.0); MEAN CORPUSCULAR VOLUME 92 fl (80-97); MONOCYTES % (AUTO) 13.7 % (3-13); RED BLOOD COUNT 3.69 10^6/uL (3.72-5.28); RED CELL DISTRIBUTION WIDTH 16.7 % (11.5-14.0); SEGMENTED NEUTROPHILS % (AUTO) 65.6 % (42-78); WHITE BLOOD COUNT 6.2 10^3/uL (4.0-10.5)
[2016-07-30 20:14] LABS: PROTHROMBIN TIME 20.5 SEC (11.4-15.4)
[2016-07-30 20:15] LABS: PARTIAL THROMBOPLASTIN TIME 34.2 SEC (23.5-35.8)
[2016-07-30] MEDS: HEPARIN SODIUM,PORCINE/D5W 250 ML IV PRN (21:20)
[2016-07-30] MEDS: HEPARIN SOD (PORCINE) 1,000 UNIT/ML 10 ML VIAL IV PRN (21:23)
[2016-07-30] MEDS ORDERED: INSULIN LISPRO 100 UNIT/ML 3 ML VIAL SUBCUT PRN (22:15)
[2016-07-30] MEDS ORDERED: DEXTROSE 40% GEL 15 GM TUBE PO PRN ×2 (22:15)
[2016-07-30] MEDS ORDERED: DEXTROSE 50%-WATER 25 GM/50 ML DISP.SYRIN IV PRN ×2 (22:15)
[2016-07-30] MEDS ORDERED: GLUCAGON,HUMAN RECOMB 1 MG INJ IM PRN (22:15)
[2016-07-30] MEDS ORDERED: TRAZODONE HCL 50 MG TABLET PO ONE (23:59)
--- NOTE | 2016-07-31 00:17 | PDOC H&P ---
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 She had transition from Coumadin to Xarelto on 28 July. She had done well until 4 days ago having mechanical falls 2. Followed by shortness of breath of the last 48 hours. She admits compliance with Xarelto, denying chest pain nausea vomiting. She also complains of exacerbations of baseline depression secondary to grief following the of her daughter and challenges with her son who lives with her at home. In the emergency room she is found to have right-sided pulmonary emboli with hypotension and persistent extensive right leg deep vein thrombosis. She is referred to the hospitalist for admission. Past Medical History Cardiac Medical History: Reports: Congestive Heart Failure - diastolic wtih stiffness last year, Hypertension - medicated Denies: Coronary Artery Disease, Myocardial Infarction Pulmonary Medical History: Reports: Bronchitis - 2006 chronic bronchitis Denies: Asthma, Chronic Obstructive Pulmonary Disease (COPD), Pneumonia EENT Medical History: Reports: Eyes - Macular degeneration Neurological Medical History: Denies: Seizures Endocrine Medical History: Reports: Diabetes Mellitus Type 1, Diabetes Mellitus Type 2 Malignancy Medical History: Reports: Breast Cancer - 2002 GI Medical History: Reports: Gastroesophageal Reflux Disease - barretts, Hiatal Hernia Denies: Hepatitis Musculoskeltal Medical History: Reports: Arthritis Psychiatric Medical History: Reports: Depression Hematology: Denies: Anemia, Sickle Cell Disease Past Surgical History Past Surgical History: Reports: Hysterectomy, Mastectomy - apr 2011 denise/no restrictions, Orthopedic Surgery - Left knee replacement laminectomy, Other Denies: Amputation, Pacemaker Social History Information Source: Patient, [facility] Records Smoking Status: Former Smoker Frequency of Alcohol Use: None Hx Recreational Drug Use: No Drugs: None Hx Prescription Drug Abuse: No - Advance Directive Resuscitation Status: Full Code Family History Family History: Hypertension, Malignancy Parental Family History Reviewed: Yes Children Family History Reviewed: Yes Sibling(s) Family History Reviewed.: Yes Medication/Allergy Home Medications: Amlodipine Besylate [Norvasc 10 mg Tablet] 10 mg PO DAILY 07/30/16 Hydralazine HCl [Apresoline 25 mg Tablet] 25 mg PO BID 07/30/16 Levothyroxine Sodium [Synthroid 0.15 mg Tablet] 0.15 mg PO DAILY 07/30/16 Metformin HCl [Metformin HCl ER] 2,000 mg PO QPM 07/30/16 Rivaroxaban [Xarelto 10 mg Tablet] 20 mg PO DAILY 07/30/16 Valsartan/Hydrochlorothiazide [Valsartan-Hctz 320-25 mg Tab] 1 tab PO DAILY Venlafaxine HCl [Venlafaxine HCl ER] 150 mg PO DAILY 07/30/16 Warfarin Sodium [Coumadin 5 mg Tablet] 5 mg PO DAILY 07/30/16 Allergies/Adverse Reactions: bupropion HCl [From Wellbutrin] Allergy (Intermediate, Verified 06/11/16 14:51) hallucination,diarrhea Review of Systems Constitutional: ABSENT: chills, fever(s), headache(s), weight gain, weight loss Eyes: PRESENT: other - Macular degeneration. ABSENT: visual disturbances Ears: ABSENT: hearing changes Cardiovascular: PRESENT: dyspnea on exertion, orthropnea Respiratory: PRESENT: cough Gastrointestinal: PRESENT: bloating, constipation Genitourinary: ABSENT: dysuria, hematuria Musculoskeletal: ABSENT: joint swelling Integumentary: ABSENT: rash, wounds Neurological: ABSENT: abnormal gait, abnormal speech, confusion, dizziness, focal weakness, syncope Psychiatric: PRESENT: anxiety Endocrine: ABSENT: cold intolerance, heat intolerance, polydipsia, polyuria Hematologic/Lymphatic: ABSENT: easy bleeding, easy bruising Physical Exam Vital Signs: Temp Pulse Resp BP Pulse Ox 98.0 F 92 16 122/55 L 96 07/30/16 20:00 07/30/16 14:49 07/30/16 23:02 07/30/16 23:02 07/30/16 23:02 General appearance: PRESENT: no acute distress, well-developed, well-nourished Head exam: PRESENT: atraumatic, normocephalic Eye exam: PRESENT: conjunctiva pink, EOMI, PERRLA. ABSENT: scleral icterus Ear exam: PRESENT: normal external ear exam Mouth exam: PRESENT: moist, tongue midline Neck exam: ABSENT: carotid bruit, JVD, lymphadenopathy, thyromegaly Respiratory exam: PRESENT: clear to auscultation denise. ABSENT: rales, rhonchi, wheezes Cardiovascular exam: PRESENT: RRR. ABSENT: diastolic murmur, rubs, systolic murmur Pulses: PRESENT: normal dorsalis pedis pul Vascular exam: PRESENT: normal capillary refill GI/Abdominal exam: PRESENT: normal bowel sounds, soft. ABSENT: distended, guarding, mass, organolmegaly, rebound, tenderness Rectal exam: PRESENT: deferred Extremities exam: PRESENT: full ROM. ABSENT: calf tenderness, clubbing, pedal edema Neurological exam: PRESENT: alert, awake, oriented to person, oriented to place , oriented to time, oriented to situation, CN II-XII grossly intact. ABSENT: motor sensory deficit Psychiatric exam: PRESENT: appropriate affect, normal mood. ABSENT: homicidal ideation, suicidal ideation Skin exam: PRESENT: dry, intact, warm. ABSENT: cyanosis, rash Results Laboratory Results: 07/30/16 19:59 07/30/16 19:59 WBC 6.2 RBC 3.69 L Hgb 10.7 L Hct 34.0 L MCV 92 MCH 29.1 MCHC 31.6 L RDW 16.7 H Plt Count 273 Seg Neutrophils % 65.6 Lymphocytes % 19.9 Monocytes % 13.7 H Eosinophils % 0.3 Basophils % 0.5 Absolute Neutrophils 4.1 Absolute Lymphocytes 1.2 Absolute Monocytes 0.9 Absolute Eosinophils 0.0 Absolute Basophils 0.0 07/30/16 19:59 NT-Pro-B Natriuret Pep 1020 H Impressions: Chest X-Ray 07/30/16 13:46 IMPRESSION: NO SIGNIFICANT RADIOGRAPHIC FINDING IN THE CHEST. Chest/Abdomen CTA 07/30/16 14:55 IMPRESSION: Right-sided pulmonary emboli in the right lower lobe segmental artery and subsegmental branches as well. Assessment & Plan - Diagnosis (1) Pulmonary embolism Qualifiers: Pulmonary embolism type: other Chronicity: acute Acute cor pulmonale presence: without acute cor pulmonale Qualified Code(s): I26.99 - Other pulmonary embolism without acute cor pulmonale Is this a current diagnosis for this admission?: YesPlan: Secondary to extensive left leg DVT and likely dislodged by recent falls. 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 Cha consulted, vascular surgeon Michael Underwood consulted for consideration of IVC filter. (2) Hypotension Is this a current diagnosis for this admission?: YesPlan: IV fluid challenge initiated no overt signs of congestive heart failure. (3) Irritable bowel syndrome with constipation Is this a current diagnosis for this admission?: YesPlan: Bentyl, Metamucil and as needed lactulose (4) Grief Is this a current diagnosis for this admission?: YesPlan: Secondary to recent of her daughter. Consider mental health consult, discharge planning consult and trial of trazodone (5) Fall Is this a current diagnosis for this admission?: YesPlan: Complicated by debility and macular degeneration I will obtain a physical therapy consultation. (6) Diabetes Is this a current diagnosis for this admission?: YesPlan: Sliding scale insulin - Time Time Spent: 50 to 70 Minutes - Inpatient Certification Medical Necessity: Need Close Monitoring Due to Risk of Patient Decompensation
[2016-07-31] MEDS ORDERED: LACTULOSE SYRUP 20 GM/30 ML UDCUP PO ONE (00:30)
[2016-07-31] MEDS ORDERED: PSYLLIUM SEED-SF 5.85 GM PACKET PO ONE ×2 (00:45)
[2016-07-31] MEDS: IPRATROPIUM/ALBUTEROL 0.5-2.5 MG/3 ML AMPUL NEB SCH ×4 (00:52→23:46)
[2016-07-31 03:15] LABS: FOLATE 5.94 ng/mL (>2.76)
[2016-07-31 05:17] LABS: ABSOLUTE EOSINOPHILS # (AUTO) 0.1 10^3/uL (0.0-0.6); ABSOLUTE LYMPHOCYTES (AUTO) 1.9 10^3/uL (0.5-4.7); ABSOLUTE MONOCYTES (AUTO) 1.2 10^3/uL (0.1-1.4); ABSOLUTE NEUT (AUTO) 4.5 10^3/uL (1.7-8.2); BASOPHILS % (AUTO) 0.5 % (0-2); EOSINOPHILS % (AUTO) 0.7 % (0-6); HEMATOCRIT 32.6 % (36.0-47.0); HEMOGLOBIN 10.5 g/dL (12.0-15.5); HGB HCT DIFFERENCE -1.1; LYMPHOCYTES % (AUTO) 24.3 % (13-45); MEAN CORPUSCULAR HEMOGLOBIN 29.4 pg (27.0-33.4); MEAN CORPUSCULAR HGB CONC 32.1 g/dL (32.0-36.0); MEAN CORPUSCULAR VOLUME 92 fl (80-97); MONOCYTES % (AUTO) 15.3 % (3-13); RED BLOOD COUNT 3.56 10^6/uL (3.72-5.28); RED CELL DISTRIBUTION WIDTH 16.6 % (11.5-14.0); SEGMENTED NEUTROPHILS % (AUTO) 59.2 % (42-78); WHITE BLOOD COUNT 7.6 10^3/uL (4.0-10.5)
[2016-07-31 05:38] LABS: ANION GAP 10 (5-19); BLOOD UREA NITROGEN 17 mg/dL (7-20); CALCIUM 7.9 mg/dL (8.4-10.2); CARBON DIOXIDE 23 mmol/L (22-30); CHLORIDE 104 mmol/L (98-107); CREATININE RESULT 0.95 mg/dL (0.52-1.25); GLUCOSE 153 mg/dL (75-110); POTASSIUM 3.9 mmol/L (3.6-5.0); SODIUM 136.7 mmol/L (137-145)
[2016-07-31] MEDS ORDERED: (PENDING PHARMACY ID) (Valsartan/Hydrochlorothiazide [Valsartan-Hctz 320-25 Mg Tab] 1 TAB) PO SCH (10:00)
[2016-07-31] MEDS: HYDRALAZINE HCL 25 MG TABLET PO SCH ×2 (10:28→21:10)
[2016-07-31] MEDS: AMLODIPINE BESYLATE 10 MG TABLET PO SCH (10:28)
[2016-07-31] MEDS: LEVOTHYROXINE SODIUM 0.15 MG TABLET PO SCH (10:28)
[2016-07-31] MEDS: IRON POLYSACCHARIDES COMPLEX 150 MG CAPSULE PO SCH (10:28)
[2016-07-31] MEDS: PSYLLIUM SEED-SF 5.85 GM PACKET PO SCH ×2 (10:29)
[2016-07-31] MEDS: VALSARTAN 160 MG TABLET PO SCH (10:29)
[2016-07-31] MEDS: HYDROCHLOROTHIAZIDE 25 MG TABLET PO SCH (10:29)
[2016-07-31] MEDS: DOCUSATE SODIUM 100 MG CAPSULE PO SCH ×2 (10:29→17:26)
[2016-07-31] MEDS: VENLAFAXINE HCL 75 MG CAP.SR.24H PO SCH (10:29)
--- NOTE | 2016-07-31 10:37 | XCELERA REPORT ---
[address] [address] Lower Extremity Venous Evaluation Name: GARCIA TRINIDAD Age: 86 yrs Gender: Female : 1930 Patient Status: Inpatient Patient Location: [id number] Study Date: 07/31/2016 08:26 AM Procedure: Color flow and duplex imaging of the veins of the left lower extremity as well as the right Common Femoral vein. Reason For Study: LLE DVT, PE Ordering Physician: RADHA YOST Performed By: Saloni Fontenot Right Sided Venous Evaluation The right common femoral vein is fully compressible. Spontaneous and phasic flow is present in the right common femoral vein. Left Sided Venous Evaluation Abnormal vessel filling no , compression and partial Colour flow in the CFV, SFJ. Interpretation Summary Continued evidence of extensive DVT the left lower extremity. Partial flow and history, are in favor of sub acute nature. : RADHA YOST > Peng Underwood
--- NOTE | 2016-07-31 10:47 | EKG REPORT ---
SEVERITY:- ABNORMAL ECG - SINUS RHYTHM LEFT ANTERIOR FASCICULAR BLOCK BORDERLINE R WAVE PROGRESSION, ANTERIOR LEADS : Confirmed by: Yudy Lockwood MD 31-Jul-2016 10:46:50
--- NOTE | 2016-07-31 14:48 | CONSULTATION REPORT E ---
Consultation Report NAME: GARCIA TRINIDAD : 1930 AGE: 86Y DATE: 07/31/2016 ROOM: 309 A TO: HERON BLAKE M.D. FROM: DONTA JOHNSON M.D. Requesting Physician REASON FOR REFERRAL: DVT. HISTORY OF PRESENT ILLNESS: The patient is an 86-year-old woman with a diagnosis of breast cancer, who now presents with deep venous thrombosis and pulmonary embolism. She was diagnosed with left breast cancer in 2002. She underwent lumpectomy, received chemotherapy with CMF followed by radiation. She was on monotherapy with Arimidex. She recurred in 2011 and underwent bilateral mastectomy. At that time, she refused chemotherapy and was started on Tamoxifen. With regards to her breast cancer, she has been doing well and from her last visit, March of 2006, she had no clinical evidence of progression of her cancer. She is now hospitalized with DVT and pulmonary embolism. She is on IV heparin. Her venous Doppler of her lower extremity, done 07/31/2016, shows the right common femoral vein fully compressible. Abnormal *------* filling, left sided venous evaluation. Impression: Continued evidence of DVT in the left lower extremity, partial flow, and history in favor of subacute nature. CTA chest, 07/30/2016 shows right-sided pulmonary emboli in the right lower lobe segmental artery and subsegmental branches as well. IMPRESSION AND PLAN: The patient is an 86-year-old woman with a history of breast cancer. She is on Tamoxifen. She has DVT, presently on heparin drip. It is likely that the Tamoxifen contributed to her DVT and PE. At this time, I would recommend putting in an IVC filter to prevent future pulmonary embolism. I will discontinue the Tamoxifen for now, possibly putting her on one of the aromatase inhibitors, which would have a less chance of thromboembolism. I will plan on seeing her back for followup as an outpatient and discuss this further with her following this discharge. She can be discharged home on Lovenox twice a day, 1 mg/kg q. 12. I thank you for this consultation and allowing me to be part of her care. DICTATING PHYSICIAN: HERON BLAKE M.D. [id number] Y#: [id number] ID: [id number] JOB#: [id number] ACCT: [id number] cc:HERON BLAKE M.D. >
--- NOTE | 2016-07-31 15:24 | PDOC PROGRESS REPORT ---
Subjective Progress Note for:: 07/31/16 Subjective:: Patient is seen on rounds. She is resting comfortably in bed. She denies any chest pain or shortness of breath while at rest. She denies nausea, vomiting or abdominal pain. She states her left leg only bothers her when she is ambulating , but the pain and swelling has improved over time. She denies any other complaints at the present time. Remaining review of systems is negative. Physical Exam Vital Signs: Temp Pulse Resp BP Pulse Ox 98.9 F 74 16 147/44 H 98 07/31/16 11:42 07/31/16 14:00 07/31/16 11:42 07/31/16 11:42 07/31/16 11:42 Intake & Output 07/30/16 07/31/16 08/01/16 06:59 06:59 06:59 Intake Total 1177 Output Total 400 Balance 777 Weight 97 kg General appearance: PRESENT: no acute distress, well-developed, well-nourished Head exam: PRESENT: atraumatic, normocephalic Eye exam: PRESENT: conjunctiva pink, EOMI, PERRLA. ABSENT: scleral icterus Ear exam: PRESENT: normal external ear exam Mouth exam: PRESENT: moist, tongue midline Neck exam: ABSENT: carotid bruit, JVD, lymphadenopathy, thyromegaly Respiratory exam: PRESENT: clear to auscultation denise. ABSENT: rales, rhonchi, wheezes Cardiovascular exam: PRESENT: RRR. ABSENT: diastolic murmur, rubs, systolic murmur Pulses: PRESENT: normal dorsalis pedis pul Vascular exam: PRESENT: normal capillary refill GI/Abdominal exam: PRESENT: normal bowel sounds, soft. ABSENT: distended, guarding, mass, organolmegaly, rebound, tenderness Rectal exam: PRESENT: deferred Extremities exam: PRESENT: calf tenderness, +2 edema - left lower extremity Musculoskeletal exam: PRESENT: ambulatory, full ROM, normal inspection Neurological exam: PRESENT: alert, awake, oriented to person, oriented to place , oriented to time, oriented to situation, CN II-XII grossly intact. ABSENT: motor sensory deficit Psychiatric exam: PRESENT: appropriate affect, normal mood. ABSENT: homicidal ideation, suicidal ideation Skin exam: PRESENT: dry, intact, warm. ABSENT: cyanosis, rash Results Laboratory Results: 07/31/16 04:26 07/31/16 04:26 07/30/16 07/31/16 07/31/16 19:59 01:43 01:43 WBC 6.2 RBC 3.69 L Hgb 10.7 L Hct 34.0 L MCV 92 MCH 29.1 MCHC 31.6 L RDW 16.7 H Plt Count 273 Seg Neutrophils % 65.6 Lymphocytes % 19.9 Monocytes % 13.7 H Eosinophils % 0.3 Basophils % 0.5 Absolute Neutrophils 4.1 Absolute Lymphocytes 1.2 Absolute Monocytes 0.9 Absolute Eosinophils 0.0 Absolute Basophils 0.0 Retic Count (auto) 1.17 Absolute Retic 0.042 Sodium Potassium Chloride Carbon Dioxide Anion Gap BUN Creatinine Est GFR ( Amer) Est GFR (Non-Af Amer) Glucose Calcium Iron 34.8 L TIBC 318 % Saturation 11 Ferritin 91.90 Vitamin B12 302.0 Folate 5.94 07/31/16 07/31/16 04:26 04:26 WBC 7.6 RBC 3.56 L Hgb 10.5 L Hct 32.6 L MCV 92 MCH 29.4 MCHC 32.1 RDW 16.6 H Plt Count 265 Seg Neutrophils % 59.2 Lymphocytes % 24.3 Monocytes % 15.3 H Eosinophils % 0.7 Basophils % 0.5 Absolute Neutrophils 4.5 Absolute Lymphocytes 1.9 Absolute Monocytes 1.2 Absolute Eosinophils 0.1 Absolute Basophils 0.0 Retic Count (auto) Absolute Retic Sodium 136.7 L Potassium 3.9 Chloride 104 Carbon Dioxide 23 Anion Gap 10 BUN 17 Creatinine 0.95 Est GFR ( Amer) > 60 Est GFR (Non-Af Amer) 56 L Glucose 153 H Calcium 7.9 L Iron TIBC % Saturation Ferritin Vitamin B12 Folate 07/30/16 19:59 NT-Pro-B Natriuret Pep 1020 H Impressions: Chest X-Ray 07/30/16 13:46 IMPRESSION: NO SIGNIFICANT RADIOGRAPHIC FINDING IN THE CHEST. Chest/Abdomen CTA 07/30/16 14:55 IMPRESSION: Right-sided pulmonary emboli in the right lower lobe segmental artery and subsegmental branches as well. Assessment & Plan - Diagnosis (1) Pulmonary embolism Qualifiers: Pulmonary embolism type: other Chronicity: acute Acute cor pulmonale presence: without acute cor pulmonale Qualified Code(s): I26.99 - Other pulmonary embolism without acute cor pulmonale Is this a current diagnosis for this admission?: YesPlan: Patient is presently on IV heparin. We have consulted Dr Underwood for consideration of a he[place] filter placement since patient developed PE. Dr hCa was also consulted to see patient (2) Macula lutea degeneration Is this a current diagnosis for this admission?: YesPlan: Continue drops (3) Diabetes Qualifiers: Diabetes mellitus type: type 2 Is this a current diagnosis for this admission?: YesPlan: Continue home medications and sliding scale coverage (4) Fall Is this a current diagnosis for this admission?: YesPlan: Patient at risk for fall with macular degeneration (5) Grief Is this a current diagnosis for this admission?: YesPlan: Patient is grieving the recent loss of her daughter - Time Time Spent with patient: 25-34 minutes Critical Time spent with patient: 15-24 minutes Medications reviewed and adjusted accordingly: Yes
[2016-07-31] MEDS ORDERED: (PENDING PHARMACY ID) (Metformin Hcl [Metformin Hcl Er] 2,000 MG) PO SCH (18:00)
[2016-07-31] MEDS: TRAZODONE HCL 50 MG TABLET PO SCH (21:10)
[2016-08-01 05:02] LABS: HEMATOCRIT 29.2 % (36.0-47.0); HEMOGLOBIN 9.5 g/dL (12.0-15.5); HGB HCT DIFFERENCE -0.7; MEAN CORPUSCULAR HEMOGLOBIN 29.6 pg (27.0-33.4); MEAN CORPUSCULAR HGB CONC 32.6 g/dL (32.0-36.0); MEAN CORPUSCULAR VOLUME 91 fl (80-97); RED BLOOD COUNT 3.22 10^6/uL (3.72-5.28); RED CELL DISTRIBUTION WIDTH 16.8 % (11.5-14.0); WHITE BLOOD COUNT 6.7 10^3/uL (4.0-10.5)
[2016-08-01 05:22] LABS: ANION GAP 9 (5-19); BLOOD UREA NITROGEN 13 mg/dL (7-20); CALCIUM 8.2 mg/dL (8.4-10.2); CARBON DIOXIDE 26 mmol/L (22-30); CHLORIDE 103 mmol/L (98-107); CREATININE RESULT 0.76 mg/dL (0.52-1.25); GLUCOSE 137 mg/dL (75-110); SODIUM 137.5 mmol/L (137-145)
[2016-08-01] MEDS: IPRATROPIUM/ALBUTEROL 0.5-2.5 MG/3 ML AMPUL NEB SCH ×2 (08:42→16:07)
[2016-08-01] MEDS: HEPARIN SODIUM,PORCINE/D5W 250 ML IV PRN (09:01)
[2016-08-01] MEDS: VALSARTAN 160 MG TABLET PO SCH (10:58)
[2016-08-01] MEDS: LEVOTHYROXINE SODIUM 0.15 MG TABLET PO SCH (10:59)
[2016-08-01] MEDS: AMLODIPINE BESYLATE 10 MG TABLET PO SCH (10:59)
[2016-08-01] MEDS: HYDROCHLOROTHIAZIDE 25 MG TABLET PO SCH (10:59)
[2016-08-01] MEDS: VENLAFAXINE HCL 75 MG CAP.SR.24H PO SCH (10:59)
[2016-08-01] MEDS: IRON POLYSACCHARIDES COMPLEX 150 MG CAPSULE PO SCH (10:59)
[2016-08-01] MEDS: HYDRALAZINE HCL 25 MG TABLET PO SCH ×2 (10:59→22:36)
[2016-08-01] MEDS: PSYLLIUM SEED-SF 5.85 GM PACKET PO SCH ×2 (11:00)
[2016-08-01] MEDS: DOCUSATE SODIUM 100 MG CAPSULE PO SCH ×2 (11:01→17:40)
--- NOTE | 2016-08-01 15:43 | PDOC PROGRESS REPORT ---
Subjective Progress Note for:: 08/01/16 Subjective:: Patient is seen on rounds. She is resting comfortably in bed. She denies any chest pain or shortness of breath while at rest. She denies nausea, vomiting or abdominal pain. She states her left leg only bothers her when she is ambulating , but the pain and swelling has improved over time. She is scheduled to have a [place] filter placed later today by Dr. Underwood. We will then start her on Lovenox q12 and arrange follow up with Dr Cha. She denies any other complaints at the present time. Remaining review of systems is negative. Physical Exam Vital Signs: Temp Pulse Resp BP Pulse Ox 98.7 F 97 16 171/67 H 93 08/01/16 07:21 08/01/16 08:42 08/01/16 08:42 08/01/16 07:21 08/01/16 08:42 Intake & Output 07/31/16 08/01/16 08/02/16 06:59 06:59 06:59 Intake Total 1177 1147 Output Total 400 451 Balance 777 696 Weight 97 kg 96 kg General appearance: PRESENT: no acute distress, well-developed, well-nourished Head exam: PRESENT: atraumatic, normocephalic Eye exam: PRESENT: conjunctiva pink, EOMI, PERRLA. ABSENT: scleral icterus Ear exam: PRESENT: normal external ear exam Mouth exam: PRESENT: moist, tongue midline Neck exam: ABSENT: carotid bruit, JVD, lymphadenopathy, thyromegaly Respiratory exam: PRESENT: clear to auscultation denise. ABSENT: rales, rhonchi, wheezes Cardiovascular exam: PRESENT: RRR. ABSENT: diastolic murmur, rubs, systolic murmur Pulses: PRESENT: normal dorsalis pedis pul Vascular exam: PRESENT: normal capillary refill Rectal exam: PRESENT: deferred Extremities exam: PRESENT: full ROM, +1 edema - left lower extremity. ABSENT: calf tenderness, clubbing, pedal edema Neurological exam: PRESENT: alert, awake, oriented to person, oriented to place , oriented to time, oriented to situation, CN II-XII grossly intact. ABSENT: motor sensory deficit Psychiatric exam: PRESENT: appropriate affect, normal mood. ABSENT: homicidal ideation, suicidal ideation Skin exam: PRESENT: dry, intact, warm. ABSENT: cyanosis, rash Results Laboratory Results: 08/01/16 04:23 08/01/16 04:23 08/01/16 08/01/16 04:23 04:23 WBC 6.7 RBC 3.22 L Hgb 9.5 L Hct 29.2 L MCV 91 MCH 29.6 MCHC 32.6 RDW 16.8 H Plt Count 249 Sodium 137.5 Potassium 4.0 Chloride 103 Carbon Dioxide 26 Anion Gap 9 BUN 13 Creatinine 0.76 Est GFR ( Amer) > 60 Est GFR (Non-Af Amer) > 60 Glucose 137 H Calcium 8.2 L 07/30/16 19:59 NT-Pro-B Natriuret Pep 1020 H Impressions: Chest X-Ray 07/30/16 13:46 IMPRESSION: NO SIGNIFICANT RADIOGRAPHIC FINDING IN THE CHEST. Chest/Abdomen CTA 07/30/16 14:55 IMPRESSION: Right-sided pulmonary emboli in the right lower lobe segmental artery and subsegmental branches as well. Assessment & Plan - Diagnosis (1) Pulmonary embolism Qualifiers: Pulmonary embolism type: other Chronicity: acute Acute cor pulmonale presence: without acute cor pulmonale Qualified Code(s): I26.99 - Other pulmonary embolism without acute cor pulmonale Is this a current diagnosis for this admission?: YesPlan: Patient is presently on IV heparin. She will have a [place] filter placed by Dr Underwood today . Post procedure we will begin weight based lovenox q[address] Cha's recommendation (2) Dvt femoral (deep venous thrombosis) Qualifiers: Chronicity: acute Laterality: left Qualified Code(s): I82.412 - Acute embolism and thrombosis of left femoral vein Is this a current diagnosis for this admission?: YesPlan: As above (3) Diabetes Qualifiers: Diabetes mellitus type: type 2 Is this a current diagnosis for this admission?: YesPlan: Continue home medications and sliding scale coverage (4) Macula lutea degeneration Is this a current diagnosis for this admission?: YesPlan: Continue drops (5) Fall Is this a current diagnosis for this admission?: YesPlan: Patient at risk for fall with macular degeneration. Discussed with her risks with any anticoagulation therapy she will need to be extra cautious (6) Grief Is this a current diagnosis for this admission?: YesPlan: Patient is grieving the recent loss of her daughter - Time Time Spent with patient: 25-34 minutes Critical Time spent with patient: 15-24 minutes Medications reviewed and adjusted accordingly: Yes
[2016-08-01 16:06] LABS: APPEARANCE,URINE CLEAR; BILIRUBIN,URINE NEGATIVE (NEGATIVE); GLUCOSE, URINE NEGATIVE (NEGATIVE); KETONES,URINE NEGATIVE (NEGATIVE); LEUKOCYTE ESTERASE,URINE NEGATIVE (NEGATIVE); NITRITE,URINE NEGATIVE (NEGATIVE); PROTEIN,URINE NEGATIVE (NEGATIVE); URINE SPECIFIC GRAVITY 1.009; UROBILINOGEN,URINE NEGATIVE mg/dL (<2.0)
[2016-08-01] MEDS: METFORMIN HCL 500 MG TABLET PO SCH (16:52)
[2016-08-01] MEDS: TRAZODONE HCL 50 MG TABLET PO SCH (22:37)
[2016-08-01] MEDS: CYCLOSPORINE 0.05% OPH EMULSIO 0.4 ML DROPERETTE OU SCH (22:38)
[2016-08-02] MEDS: IPRATROPIUM/ALBUTEROL 0.5-2.5 MG/3 ML AMPUL NEB SCH ×3 (00:07→15:25)
[2016-08-02] MEDS: HEPARIN SODIUM,PORCINE/D5W 250 ML IV PRN ×2 (02:22→20:20)
[2016-08-02 04:50] LABS: ABSOLUTE EOSINOPHILS # (AUTO) 0.1 10^3/uL (0.0-0.6); ABSOLUTE LYMPHOCYTES (AUTO) 1.3 10^3/uL (0.5-4.7); ABSOLUTE MONOCYTES (AUTO) 0.8 10^3/uL (0.1-1.4); ABSOLUTE NEUT (AUTO) 4.7 10^3/uL (1.7-8.2); BASOPHILS % (AUTO) 0.5 % (0-2); EOSINOPHILS % (AUTO) 0.9 % (0-6); HEMATOCRIT 30.9 % (36.0-47.0); HEMOGLOBIN 9.9 g/dL (12.0-15.5); HGB HCT DIFFERENCE -1.2; LYMPHOCYTES % (AUTO) 19.3 % (13-45); MEAN CORPUSCULAR HEMOGLOBIN 29.5 pg (27.0-33.4); MEAN CORPUSCULAR HGB CONC 32.2 g/dL (32.0-36.0); MEAN CORPUSCULAR VOLUME 92 fl (80-97); MONOCYTES % (AUTO) 11.8 % (3-13); RED BLOOD COUNT 3.38 10^6/uL (3.72-5.28); RED CELL DISTRIBUTION WIDTH 16.5 % (11.5-14.0); SEGMENTED NEUTROPHILS % (AUTO) 67.5 % (42-78)
[2016-08-02 05:05] LABS: ANION GAP 9 (5-19); BLOOD UREA NITROGEN 11 mg/dL (7-20); CALCIUM 8.4 mg/dL (8.4-10.2); CARBON DIOXIDE 26 mmol/L (22-30); CHLORIDE 101 mmol/L (98-107); CREATININE RESULT 0.63 mg/dL (0.52-1.25); GLUCOSE 148 mg/dL (75-110); POTASSIUM 3.8 mmol/L (3.6-5.0); SODIUM 136.1 mmol/L (137-145)
--- NOTE | 2016-08-02 07:11 | PDOC PROGRESS REPORT ---
Subjective Progress Note for:: 08/02/16 Subjective:: dyspnea & L leg pain gone. Waiting filter 2d hence. Physical Exam Vital Signs: Temp Pulse Resp BP Pulse Ox 99.3 F 91 20 123/49 L 94 08/02/16 04:10 08/02/16 04:10 08/02/16 04:10 08/02/16 04:10 08/02/16 04:10 Intake & Output 07/31/16 08/01/16 08/02/16 07:59 07:59 07:59 Intake Total 1177 1147 829 Output Total 400 451 300 Balance 777 696 529 Weight 213 lb 13.574 oz 211 lb 10.3 oz 208 lb 12.444 oz General appearance: PRESENT: no acute distress Respiratory exam: PRESENT: clear to auscultation denise Cardiovascular exam: ABSENT: diastolic murmur, irregular rhythm, systolic murmur GI/Abdominal exam: ABSENT: mass, organolmegaly, tenderness Extremities exam: ABSENT: pedal edema Neurological exam: PRESENT: oriented to situation Psychiatric exam: PRESENT: appropriate affect Results Laboratory Results: 08/02/16 04:22 08/02/16 04:22 08/01/16 08/02/16 08/02/16 14:03 04:22 04:22 WBC 7.0 RBC 3.38 L Hgb 9.9 L Hct 30.9 L MCV 92 MCH 29.5 MCHC 32.2 RDW 16.5 H Plt Count 228 Seg Neutrophils % 67.5 Lymphocytes % 19.3 Monocytes % 11.8 Eosinophils % 0.9 Basophils % 0.5 Absolute Neutrophils 4.7 Absolute Lymphocytes 1.3 Absolute Monocytes 0.8 Absolute Eosinophils 0.1 Absolute Basophils 0.0 Sodium 136.1 L Potassium 3.8 Chloride 101 Carbon Dioxide 26 Anion Gap 9 BUN 11 Creatinine 0.63 Est GFR ( Amer) > 60 Est GFR (Non-Af Amer) > 60 Glucose 148 H Calcium 8.4 Urine Color YELLOW Urine Appearance CLEAR Urine pH 6.0 Ur Specific [place] 1.009 Urine Protein NEGATIVE Urine Glucose (UA) NEGATIVE Urine Ketones NEGATIVE Urine Blood NEGATIVE Urine Nitrite NEGATIVE Ur Leukocyte Esterase NEGATIVE Ur Squamous Epith Cells RARE 07/30/16 19:59 NT-Pro-B Natriuret Pep 1020 H Impressions: Chest X-Ray 07/30/16 13:46 IMPRESSION: NO SIGNIFICANT RADIOGRAPHIC FINDING IN THE CHEST. Chest/Abdomen CTA 07/30/16 14:55 IMPRESSION: Right-sided pulmonary emboli in the right lower lobe segmental artery and subsegmental branches as well. Assessment & Plan - Diagnosis (1) Pulmonary embolism Qualifiers: Pulmonary embolism type: other Chronicity: acute Acute cor pulmonale presence: without acute cor pulmonale Qualified Code(s): I26.99 - Other pulmonary embolism without acute cor pulmonale Is this a current diagnosis for this admission?: YesPlan: heparin until filter then lovenox 1mg/kg (2) Irritable bowel syndrome with constipation Is this a current diagnosis for this admission?: YesPlan: amitiza
[2016-08-02] MEDS: METFORMIN HCL 500 MG TABLET PO SCH ×2 (07:54→17:22)
[2016-08-02] MEDS: ACETAMINOPHEN 325 MG TABLET PO PRN (10:50)
[2016-08-02] MEDS: VALSARTAN 160 MG TABLET PO SCH (10:51)
[2016-08-02] MEDS: HYDROCHLOROTHIAZIDE 25 MG TABLET PO SCH (10:52)
[2016-08-02] MEDS: VENLAFAXINE HCL 75 MG CAP.SR.24H PO SCH (10:52)
[2016-08-02] MEDS: HYDRALAZINE HCL 25 MG TABLET PO SCH ×2 (10:52→21:16)
[2016-08-02] MEDS: IRON POLYSACCHARIDES COMPLEX 150 MG CAPSULE PO SCH (10:52)
[2016-08-02] MEDS: AMLODIPINE BESYLATE 10 MG TABLET PO SCH (10:52)
[2016-08-02] MEDS: LEVOTHYROXINE SODIUM 0.15 MG TABLET PO SCH (10:52)
[2016-08-02] MEDS: DOCUSATE SODIUM 100 MG CAPSULE PO SCH ×2 (10:53→17:22)
[2016-08-02] MEDS: PSYLLIUM SEED-SF 5.85 GM PACKET PO SCH ×2 (10:53)
[2016-08-02] MEDS: CYCLOSPORINE 0.05% OPH EMULSIO 0.4 ML DROPERETTE OU SCH ×2 (10:53→21:18)
[2016-08-02] MEDS: LUBIPROSTONE 24 MCG CAPSULE PO SCH ×2 (10:54→17:22)
--- NOTE | 2016-08-02 13:29 | PDOC CONSULTATION ---
Consultation Consult Date: 08/02/16 Attending physician:: KATHRYN BARCENAS Consult reason:: This patient has had multiple pulmonary emboli despite being fully anticoagulated. She is being evaluated for insertion of an inferior vena cava filter History of Present Illness Admission Date/PCP: 07/30/16 19:39 NERY JENSEN MD Patient complains of: Shortness of breath. History of Present Illness: She presented with shortness of breath and was evaluated and found to have pulmonary embolism. 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 Past Medical History Cardiac Medical History: Reports: Congestive Heart Failure - diastolic wtih stiffness last year, Hypertension - medicated Denies: Coronary Artery Disease, Myocardial Infarction Pulmonary Medical History: Reports: Bronchitis - 2006 chronic bronchitis Denies: Asthma, Chronic Obstructive Pulmonary Disease (COPD), Pneumonia EENT Medical History: Reports: Eyes - Macular degeneration Neurological Medical History: Denies: Seizures Endocrine Medical History: Reports: Diabetes Mellitus Type 1, Diabetes Mellitus Type 2 Malignancy Medical History: Reports: Breast Cancer - 2002 GI Medical History: Reports: Gastroesophageal Reflux Disease - barretts, Hiatal Hernia Denies: Hepatitis Musculoskeltal Medical History: Reports: Arthritis Psychiatric Medical History: Reports: Depression Hematology: Denies: Anemia, Sickle Cell Disease Past Surgical History Past Surgical History: Reports: Hysterectomy, Mastectomy - apr 2011 denise/no restrictions, Orthopedic Surgery - Left knee replacement laminectomy, Other Denies: Amputation, Pacemaker Social History Smoking Status: Former Smoker Last Time Smoked: 1976 Frequency of Alcohol Use: None Hx Recreational Drug Use: No Drugs: None Hx Prescription Drug Abuse: No - Advance Directive Resuscitation Status: Full Code Family History Family History: Hypertension, Malignancy Parental Family History Reviewed: No Children Family History Reviewed: No Sibling(s) Family History Reviewed.: No Medication/Allergy Home Medications: Amlodipine Besylate [Norvasc 10 mg Tablet] 10 mg PO DAILY 07/30/16 Hydralazine HCl [Apresoline 25 mg Tablet] 25 mg PO BID 07/30/16 Levothyroxine Sodium [Synthroid 0.15 mg Tablet] 0.15 mg PO DAILY 07/30/16 Metformin HCl [Metformin HCl ER] 2,000 mg PO QPM 07/30/16 Rivaroxaban [Xarelto 10 mg Tablet] 20 mg PO DAILY 07/30/16 Valsartan/Hydrochlorothiazide [Valsartan-Hctz 320-25 mg Tab] 1 tab PO DAILY Venlafaxine HCl [Venlafaxine HCl ER] 150 mg PO DAILY 07/30/16 Warfarin Sodium [Coumadin 5 mg Tablet] 5 mg PO DAILY 07/30/16 Allergies/Adverse Reactions: bupropion HCl [From Wellbutrin] Allergy (Intermediate, Verified 06/11/16 14:51) hallucination,diarrhea Physical Exam Vital Signs: Temp Pulse Resp BP Pulse Ox 98.8 F 94 20 130/59 H 96 08/02/16 12:00 08/02/16 12:00 08/02/16 12:00 08/02/16 12:00 08/02/16 12:00 Intake & Output 08/01/16 08/02/16 08/03/16 06:59 06:59 06:59 Intake Total 1147 879 355 Output Total 451 300 300 Balance 696 579 55 Weight 96 kg 94.7 kg Additional comments: Constitutional: Well-developed well-nourished lady, moderately increased body mass in. No apparent acute distress. Eyes: Mucous membranes pink and moist, pupils equal and reactive to light. Conjunctiva normal. Cornea normal. ENT: Hearing grossly normal. External pinna normal to inspection. Dentures noted. Tongue normal to inspection. Cardiac: Heart sounds 1 and 2 normal, no murmurs. Respiratory breath sounds are present bilaterally, normal. Normal respiratory effort. Skin: Normal to inspection. No ulcers, normal turgor. Psychiatric: Judgment, memory, insight seem normal. Mood is pleasant and appropriate. Extremities: Upper extremities show normal range of movement. Pulses present noted to the radial arteries. Capillary refill normal. No cyanosis noted. No muscle wasting noted. Results Laboratory Results: 08/02/16 04:22 08/02/16 04:22 08/01/16 08/02/16 08/02/16 14:03 04:22 04:22 WBC 7.0 RBC 3.38 L Hgb 9.9 L Hct 30.9 L MCV 92 MCH 29.5 MCHC 32.2 RDW 16.5 H Plt Count 228 Seg Neutrophils % 67.5 Lymphocytes % 19.3 Monocytes % 11.8 Eosinophils % 0.9 Basophils % 0.5 Absolute Neutrophils 4.7 Absolute Lymphocytes 1.3 Absolute Monocytes 0.8 Absolute Eosinophils 0.1 Absolute Basophils 0.0 Sodium 136.1 L Potassium 3.8 Chloride 101 Carbon Dioxide 26 Anion Gap 9 BUN 11 Creatinine 0.63 Est GFR ( Amer) > 60 Est GFR (Non-Af Amer) > 60 Glucose 148 H Calcium 8.4 Urine Color YELLOW Urine Appearance CLEAR Urine pH 6.0 Ur Specific [place] 1.009 Urine Protein NEGATIVE Urine Glucose (UA) NEGATIVE Urine Ketones NEGATIVE Urine Blood NEGATIVE Urine Nitrite NEGATIVE Ur Leukocyte Esterase NEGATIVE Ur Squamous Epith Cells RARE 07/30/16 19:59 NT-Pro-B Natriuret Pep 1020 H Impressions: Chest X-Ray 07/30/16 13:46 IMPRESSION: NO SIGNIFICANT RADIOGRAPHIC FINDING IN THE CHEST. Chest/Abdomen CTA 07/30/16 14:55 IMPRESSION: Right-sided pulmonary emboli in the right lower lobe segmental artery and subsegmental branches as well. Assessment & Plan - Diagnosis (1) Diabetes Qualifiers: Diabetes mellitus type: type 2 Is this a current diagnosis for this admission?: Yes (2) Dvt femoral (deep venous thrombosis) Qualifiers: Chronicity: acute Laterality: left Qualified Code(s): I82.412 - Acute embolism and thrombosis of left femoral vein Is this a current diagnosis for this admission?: Yes (3) Hypotension Is this a current diagnosis for this admission?: Yes (4) Pulmonary embolism Qualifiers: Pulmonary embolism type: other Chronicity: acute Acute cor pulmonale presence: without acute cor pulmonale Qualified Code(s): I26.99 - Other pulmonary embolism without acute cor pulmonale Is this a current diagnosis for this admission?: Yes - Plan Summary Plan Summary: In this patient who presented with multiple pulmonary emboli hematocrit shortness of breath and hypotension, initially, improved. Was on full anticoagulation, and who is known to have deep venous thrombosis of the lower extremities, insertion of an inferior vena cava filter as well as continued anticoagulation seems very reasonable. I have discussed this with the patient. Risks benefits, expected outcome and alternatives are understood by her. She wishes to proceed. The plan will be to insert a filter on Thursday possibly in the operating room under local anesthesia with sedation. We will plan accordingly.
[2016-08-02] MEDS: TRAZODONE HCL 50 MG TABLET PO SCH (21:14)
[2016-08-03] MEDS: IPRATROPIUM/ALBUTEROL 0.5-2.5 MG/3 ML AMPUL NEB SCH ×3 (00:10→16:00)
[2016-08-03] MEDS: HEPARIN SOD (PORCINE) 1,000 UNIT/ML 10 ML VIAL IV PRN ×2 (05:51→13:27)
--- NOTE | 2016-08-03 06:50 | PDOC PROGRESS REPORT ---
Subjective Progress Note for:: 08/03/16 Subjective:: no dyspnea Physical Exam Vital Signs: Temp Pulse Resp BP Pulse Ox 98.4 F 86 20 131/55 H 94 08/03/16 04:25 08/03/16 04:25 08/03/16 04:25 08/03/16 04:25 08/03/16 04:25 Intake & Output 08/01/16 08/02/16 08/03/16 07:59 07:59 07:59 Intake Total 2123 867 6289 Output Total 451 300 300 Balance 126 699 7111 Weight 211 lb 10.3 oz 208 lb 12.444 oz 208 lb 5.389 oz General appearance: PRESENT: no acute distress Respiratory exam: PRESENT: clear to auscultation denise Cardiovascular exam: ABSENT: diastolic murmur, irregular rhythm GI/Abdominal exam: PRESENT: tenderness. ABSENT: mass, organolmegaly Extremities exam: PRESENT: pedal edema - L1+ Neurological exam: PRESENT: oriented to situation Psychiatric exam: PRESENT: appropriate affect Results Laboratory Results: 08/02/16 04:22 08/02/16 04:22 08/01/16 16:02 Stool Occult Blood NEGATIVE Abnormal - 24 hr 08/02/16 08/02/16 08/02/16 06:59 12:10 16:01 APTT POC Glucose 154 H 168 H 169 H 08/02/16 08/03/16 08/03/16 21:43 04:10 06:09 APTT 49.5 H POC Glucose 141 H 124 H Impressions: Chest X-Ray 07/30/16 13:46 IMPRESSION: NO SIGNIFICANT RADIOGRAPHIC FINDING IN THE CHEST. Chest/Abdomen CTA 07/30/16 14:55 IMPRESSION: Right-sided pulmonary emboli in the right lower lobe segmental artery and subsegmental branches as well. Assessment & Plan - Diagnosis (1) Pulmonary embolism Qualifiers: Pulmonary embolism type: other Chronicity: acute Acute cor pulmonale presence: without acute cor pulmonale Qualified Code(s): I26.99 - Other pulmonary embolism without acute cor pulmonale Is this a current diagnosis for this admission?: YesPlan: filter tomorrow. Adjust heparin by protocol. (2) Irritable bowel syndrome with constipation Is this a current diagnosis for this admission?: Yes - Inpatient Certification Medical Necessity: Failure to Improve With Outpatient Therapy, Need Close Monitoring Due to Risk of Patient Decompensation, Need for Surgery, Risk of Complication if Not Cared For in Hospital, Risk of Diagnosis Which Will Require Inpatient Eval/Care/Monitoring
[2016-08-03] MEDS: HYDROCHLOROTHIAZIDE 25 MG TABLET PO SCH (09:08)
[2016-08-03] MEDS: AMLODIPINE BESYLATE 10 MG TABLET PO SCH (09:09)
[2016-08-03] MEDS: LEVOTHYROXINE SODIUM 0.15 MG TABLET PO SCH (09:09)
[2016-08-03] MEDS: VALSARTAN 160 MG TABLET PO SCH (09:09)
[2016-08-03] MEDS: METFORMIN HCL 500 MG TABLET PO SCH ×2 (09:09→17:31)
[2016-08-03] MEDS: HYDRALAZINE HCL 25 MG TABLET PO SCH ×2 (09:09→21:02)
[2016-08-03] MEDS: VENLAFAXINE HCL 75 MG CAP.SR.24H PO SCH (09:09)
[2016-08-03] MEDS: IRON POLYSACCHARIDES COMPLEX 150 MG CAPSULE PO SCH (09:10)
[2016-08-03] MEDS: LUBIPROSTONE 24 MCG CAPSULE PO SCH ×2 (09:10→17:31)
[2016-08-03] MEDS: CYCLOSPORINE 0.05% OPH EMULSIO 0.4 ML DROPERETTE OU SCH ×2 (09:10→21:02)
[2016-08-03] MEDS: PSYLLIUM SEED-SF 5.85 GM PACKET PO SCH ×2 (09:10)
[2016-08-03] MEDS: DOCUSATE SODIUM 100 MG CAPSULE PO SCH ×2 (09:10→17:31)
[2016-08-03] MEDS: ACETAMINOPHEN 325 MG TABLET PO PRN (11:30)
[2016-08-03] MEDS: HEPARIN SODIUM,PORCINE/D5W 250 ML IV PRN (15:15)
[2016-08-03 17:36] LABS: ANION GAP 9 (5-19); BLOOD UREA NITROGEN 15 mg/dL (7-20); CALCIUM 8.6 mg/dL (8.4-10.2); CARBON DIOXIDE 26 mmol/L (22-30); CHLORIDE 99 mmol/L (98-107); CREATININE RESULT 0.86 mg/dL (0.52-1.25); GLUCOSE 129 mg/dL (75-110); POTASSIUM 3.6 mmol/L (3.6-5.0); SODIUM 133.9 mmol/L (137-145)
[2016-08-03] MEDS: TRAZODONE HCL 50 MG TABLET PO SCH (21:02)
--- NOTE | 2016-08-03 22:44 | EKG REPORT ---
SEVERITY:- ABNORMAL ECG - SINUS RHYTHM LAD, CONSIDER LEFT ANTERIOR FASCICULAR BLOCK BORDERLINE R WAVE PROGRESSION, ANTERIOR LEADS : Confirmed by: Antonio Shea 03-Aug-2016 22:43:40
[2016-08-04] MEDS: IPRATROPIUM/ALBUTEROL 0.5-2.5 MG/3 ML AMPUL NEB SCH ×4 (00:06→23:56)
[2016-08-04] MEDS ORDERED: CEFAZOLIN 1 GM/D5W RTU 1 GM/50 ML RTUPB IV PRN (05:00)
[2016-08-04 06:09] LABS: HEMOGLOBIN 9.7 g/dL (12.0-15.5); HGB HCT DIFFERENCE -0.9; MEAN CORPUSCULAR HGB CONC 32.4 g/dL (32.0-36.0); MEAN CORPUSCULAR VOLUME 90 fl (80-97); RED BLOOD COUNT 3.34 10^6/uL (3.72-5.28); RED CELL DISTRIBUTION WIDTH 16.6 % (11.5-14.0); WHITE BLOOD COUNT 6.6 10^3/uL (4.0-10.5)
[2016-08-04 06:27] LABS: PROTHROMBIN TIME 13.2 SEC (11.4-15.4)
[2016-08-04 06:28] LABS: PARTIAL THROMBOPLASTIN TIME 59.5 SEC (23.5-35.8)
[2016-08-04 06:29] LABS: ANION GAP 7 (5-19); BLOOD UREA NITROGEN 15 mg/dL (7-20); CALCIUM 8.6 mg/dL (8.4-10.2); CARBON DIOXIDE 28 mmol/L (22-30); CHLORIDE 99 mmol/L (98-107); CREATININE RESULT 0.72 mg/dL (0.52-1.25); GLUCOSE 135 mg/dL (75-110); POTASSIUM 4.1 mmol/L (3.6-5.0); SODIUM 133.8 mmol/L (137-145)
[2016-08-04] MEDS: HEPARIN SOD (PORCINE) 1,000 UNIT/ML 10 ML VIAL IV PRN ×2 (07:20→17:29)
[2016-08-04] MEDS: HEPARIN SODIUM,PORCINE/D5W 250 ML IV PRN (07:22)
--- NOTE | 2016-08-04 08:32 | PDOC PROGRESS REPORT ---
Subjective Progress Note for:: 08/04/16 Subjective:: no dyspnea Physical Exam Vital Signs: Temp Pulse Resp BP Pulse Ox 98.3 F 90 20 142/66 H 90 L 08/04/16 07:49 08/04/16 07:49 08/04/16 07:49 08/04/16 07:49 08/04/16 07:49 Intake & Output 08/03/16 08/04/16 08/05/16 07:59 07:59 07:59 Intake Total 1692 1607 Output Total 300 Balance 1392 1607 Weight 208 lb 5.389 oz 207 lb 7.28 oz General appearance: PRESENT: no acute distress Respiratory exam: PRESENT: clear to auscultation denise Cardiovascular exam: ABSENT: diastolic murmur, irregular rhythm, systolic murmur GI/Abdominal exam: ABSENT: mass, organolmegaly, tenderness Extremities exam: ABSENT: pedal edema Neurological exam: PRESENT: oriented to situation Psychiatric exam: PRESENT: appropriate affect Results Laboratory Results: 08/04/16 05:44 08/04/16 05:44 08/03/16 08/04/16 08/04/16 16:41 05:44 05:44 WBC 6.6 RBC 3.34 L Hgb 9.7 L Hct 30.0 L MCV 90 MCH 29.0 MCHC 32.4 RDW 16.6 H Plt Count 209 Sodium 133.9 L 133.8 L Potassium 3.6 4.1 Chloride 99 99 Carbon Dioxide 26 28 Anion Gap 9 7 BUN 15 15 Creatinine 0.86 0.72 Est GFR ( Amer) > 60 > 60 Est GFR (Non-Af Amer) > 60 > 60 Glucose 129 H 135 H Calcium 8.6 8.6 07/30/16 19:59 NT-Pro-B Natriuret Pep 1020 H Impressions: Chest X-Ray 07/30/16 13:46 IMPRESSION: NO SIGNIFICANT RADIOGRAPHIC FINDING IN THE CHEST. Chest/Abdomen CTA 07/30/16 14:55 IMPRESSION: Right-sided pulmonary emboli in the right lower lobe segmental artery and subsegmental branches as well. Assessment & Plan - Diagnosis (1) Pulmonary embolism Qualifiers: Pulmonary embolism type: other Chronicity: acute Acute cor pulmonale presence: without acute cor pulmonale Qualified Code(s): I26.99 - Other pulmonary embolism without acute cor pulmonale Is this a current diagnosis for this admission?: YesPlan: filter then switch heparin to lovenox. ? home tomorrow. (2) Irritable bowel syndrome with constipation Is this a current diagnosis for this admission?: Yes
[2016-08-04] MEDS: METFORMIN HCL 500 MG TABLET PO SCH ×2 (08:58→17:30)
[2016-08-04] MEDS ORDERED: LIDOCAINE 0.5% INJ-PF (5 MG/ML) 50 ML SDV ONE (13:20)
[2016-08-04] MEDS ORDERED: PROPOFOL INJ 200 MG/20 ML VIAL IV ONE (13:53)
[2016-08-04] MEDS ORDERED: MIDAZOLAM 2 MG/2 ML INJ ONE (13:53)
[2016-08-04] MEDS ORDERED: DIPHENHYDRAMINE HCL 50 MG/ML VIAL IV PRN (14:26)
[2016-08-04] MEDS ORDERED: ONDANSETRON HCL INJ/PF 4 MG/2 ML SDV IV PRN (14:26)
[2016-08-04] MEDS ORDERED: FENTANYL CITRATE INJ/PF 100 MCG/2 ML AMPUL IV PRN ×3 (14:26)
[2016-08-04] MEDS ORDERED: PROMETHAZINE HCL INJ 25 MG/1 ML VIAL IV PRN (14:26)
--- NOTE | 2016-08-04 15:06 | Operative Report ---
Operative Report DATE OF SURGERY: 08/04/16 PREOPERATIVE DIAGNOSIS: 1. Pulmonary emboli, multiple while on anticoagulation. 2. Left lower extremity deep venous thrombosis. 3. History of breast cancer. 4 diabetes mellitus POSTOPERATIVE DIAGNOSIS: 1. Pulmonary emboli, multiple while on anticoagulation. 2. Left lower extremity deep venous thrombosis. 3. History of breast cancer. 4 diabetes mellitus OPERATION: GEN of inferior vena cava filter via right internal jugular vein. SURGEON: PENG ESQUIVEL OFFICE CLIN ASST: None ANESTHESIA: LMAC TISSUE REMOVED OR ALTERED: Not applicable COMPLICATIONS: None ESTIMATED BLOOD LOSS: 5 mL. INTRAOPERATIVE FINDINGS: 1. Satisfactory access via right internal jugular vein which was about 1.5 cm in diameter. Good position of the filter with the filter placed about L2-L3. Contrast study showed patency of the filter appearrance and stability. Chest and abdominal x-rays pending. PROCEDURE: After obtaining informed consent, the patient was taken to the operating room and positioned supine. The right neck and upper chest were prepared with chlorhexidine and draped out with sterile linen. After the " universal timeout ", in which it was verified that the patient continued to receive antibiotic, the procedure commenced. A steriley sheathed ultrasound probe was used to evaluate the right external and internal jugular vein. Local anesthesia was infiltrated adjacent to the probe. Access into the right external jugular vein was obtained using a micropuncture needle, followed by micropuncture wire and then a micropuncture catheter. Manipulation into the central system proved difficult. A brief angiogram was done which showed a torturous route into the central system. Real-time ultrasound guidance was now used to access the internal jugular vein. This was done with a micropuncture needle, micropuncture wire followed by micropuncture catheter. This was followed by introduction of a 0.035 guidewire the tip of which was placed down into the inferior vena cava . The inferior vena cava filter introducer was now placed over the 0.035 Glidewire. The Glidewire was removed and an inferior vena cava angiogram obtained. A satisfactory position for the filter was ascertained and temporarily marked on the video screen. An appropriate angiogram still was placed on the adjacent screen. A Trapese filter was now inserted into the introducer and positioned with the push eunice so that it was just in the sheath. Gentle manipulation optimally positioned the filter which is now deployed by removing the introducer sheath over the push eunice. The push eunice was removed and the inferior vena cava angiogram done demonstrates a patency of the filter in appropriate position. The introducer was removed. Pressure was placed on the entry point for several minutes before applying a band aid. Time: 3.3 Minutes. Exposure: 00 Mosher/cms2. Contrast : 10 mls. Copies of the dictated operative report for Dr. Peng Underwood MD.
[2016-08-04] MEDS: HYDRALAZINE HCL 25 MG TABLET PO SCH ×2 (15:13→21:12)
[2016-08-04] MEDS: PSYLLIUM SEED-SF 5.85 GM PACKET PO SCH ×2 (15:13)
[2016-08-04] MEDS: DOCUSATE SODIUM 100 MG CAPSULE PO SCH ×2 (15:13→17:30)
[2016-08-04] MEDS: LEVOTHYROXINE SODIUM 0.15 MG TABLET PO SCH (15:13)
[2016-08-04] MEDS: VALSARTAN 160 MG TABLET PO SCH (15:13)
[2016-08-04] MEDS: VENLAFAXINE HCL 75 MG CAP.SR.24H PO SCH (15:13)
[2016-08-04] MEDS: AMLODIPINE BESYLATE 10 MG TABLET PO SCH (15:13)
[2016-08-04] MEDS: IRON POLYSACCHARIDES COMPLEX 150 MG CAPSULE PO SCH (15:13)
[2016-08-04] MEDS: CYCLOSPORINE 0.05% OPH EMULSIO 0.4 ML DROPERETTE OU SCH ×2 (15:13→21:13)
[2016-08-04] MEDS: HYDROCHLOROTHIAZIDE 25 MG TABLET PO SCH (15:13)
--- NOTE | 2016-08-04 15:18 | RADIOLOGY REPORT (SQ) ---
EXAM DESCRIPTION: KUB/ABDOMEN (SINGLE VIEW); NO CHG FLUORO COMPLETED DATE/TIME: 08/04/2016 3:07 pm REASON FOR STUDY: IVC IN OR GUIDED BY FLUORO COMPARISON: None. FLUOROSCOPY TIME: 3.3 minutes 11 series of digital angio images saved to PACS. TECHNIQUE: Intra-operative images acquired during surgical procedure to evaluate progress. NUMBER OF IMAGES: Cine fluoroscopic images. LIMITATIONS: None. FINDINGS: Intra procedural imaging and fluoro during inferior vena cava filter placement by Dr. Job dior. IMPRESSION: Intra procedural imaging and fluoro. COMMENT: Quality ID [id number]: Final reports for procedures using fluoroscopy that document radiation exp osure indices, or exposure time and number of fluorographic images (if radiation exposure indices are not available) Please consult full operative report of the attending physician for description of the procedure. TECHNICAL DOCUMENTATION: JOB ID: [id number] [employer]- All Rights Reserved
--- NOTE | 2016-08-04 15:18 | RADIOLOGY REPORT (SQ) ---
EXAM DESCRIPTION: KUB/ABDOMEN (SINGLE VIEW); NO CHG FLUORO COMPLETED DATE/TIME: 08/04/2016 3:07 pm REASON FOR STUDY: IVC IN OR GUIDED BY FLUORO COMPARISON: None. FLUOROSCOPY TIME: 3.3 minutes 11 series of digital angio images saved to PACS. TECHNIQUE: Intra-operative images acquired during surgical procedure to evaluate progress. NUMBER OF IMAGES: Cine fluoroscopic images. LIMITATIONS: None. FINDINGS: Intra procedural imaging and fluoro during inferior vena cava filter placement by Dr. Job dior. IMPRESSION: Intra procedural imaging and fluoro. COMMENT: Quality ID [id number]: Final reports for procedures using fluoroscopy that document radiation exp osure indices, or exposure time and number of fluorographic images (if radiation exposure indices are not available) Please consult full operative report of the attending physician for description of the procedure. TECHNICAL DOCUMENTATION: JOB ID: [id number] [employer]- All Rights Reserved
--- NOTE | 2016-08-04 16:52 | RADIOLOGY REPORT (SQ) ---
EXAM DESCRIPTION: CHEST SINGLE VIEW COMPLETED DATE/TIME: 08/04/2016 3:26 pm REASON FOR STUDY: POST OP PACU COMPARISON: 07/30/2016 EXAM PARAMETERS: NUMBER OF VIEWS: One view. TECHNIQUE: Single frontal radiographic view of the chest acquired. RADIATION DOSE: NA LIMITATIONS: None. FINDINGS: LUNGS AND PLEURA: No opacities, masses or pneumothorax. No pleural effusion. MEDIASTINUM AND HILAR STRUCTURES: No masses. Contour normal. HEART AND VASCULAR STRUCTURES: Heart normal in size. Normal vasculature. BONES: No acute findings. HARDWARE: None in the chest. OTHER: No other significant finding. IMPRESSION: NO ACUTE RADIOGRAPHIC FINDING IN THE CHEST. TECHNICAL DOCUMENTATION: JOB ID: [id number]
--- NOTE | 2016-08-04 16:53 | RADIOLOGY REPORT (SQ) ---
EXAM DESCRIPTION: KUB/ABDOMEN (SINGLE VIEW) COMPLETED DATE/TIME: 08/04/2016 3:26 pm REASON FOR STUDY: POSTOP PACU COMPARISON: None. NUMBER OF VIEWS: One view. TECHNIQUE: Supine radiographic image of the abdomen acquired. LIMITATIONS: None. FINDINGS: BOWEL GAS PATTERN: There is some large and small bowel gas. There are no significantly di stended loops of bowel. CALCIFICATIONS: No suspicious calcifications. SOFT TISSUES: No gross mass or suggestion of organomegaly. HARDWARE: Multiple small anchors are present in the anterior abdominal wall suggesting ventral hernia repair. BONES: No acute fracture. No worrisome bone lesions. OTHER: No other significant finding. IMPRESSION: Possible ileus. TECHNICAL DOCUMENTATION: JOB ID: [id number] [employer]- All Rights Reserved
[2016-08-04] MEDS: ACETAMINOPHEN 325 MG TABLET PO PRN (20:30)
[2016-08-04] MEDS: TRAZODONE HCL 50 MG TABLET PO SCH (21:11)
[2016-08-04 22:42] LABS: APPEARANCE,URINE CLEAR; BILIRUBIN,URINE NEGATIVE (NEGATIVE); GLUCOSE, URINE NEGATIVE (NEGATIVE); KETONES,URINE NEGATIVE (NEGATIVE); LEUKOCYTE ESTERASE,URINE NEGATIVE (NEGATIVE); NITRITE,URINE NEGATIVE (NEGATIVE); PROTEIN,URINE NEGATIVE (NEGATIVE); URINE SPECIFIC GRAVITY 1.011; UROBILINOGEN,URINE NEGATIVE mg/dL (<2.0)
[2016-08-05] MEDS: ENOXAPARIN SODIUM INJ 100 MG/1 ML DISP.SYRIN SUBCUT SCH ×2 (05:41→18:30)
--- NOTE | 2016-08-05 07:19 | PDOC DISCHARGE SUMMARY ---
General - Admit/Disc Date/PCP Admission Date/Primary Care Provider: 07/30/16 19:39 NERY JENSEN MD Discharge Date: 08/05/16 - Discharge Diagnosis (1) Pulmonary embolism Is this a current diagnosis for this admission?: Yes (2) Irritable bowel syndrome with constipation Is this a current diagnosis for this admission?: Yes - Additional Information Resuscitation Status: Full Code Discharge Diet: Diabetic Discharge Activity: Balance Activity w/Rest Home Medications: Amlodipine Besylate [Norvasc 10 mg Tablet] 10 mg PO DAILY 07/30/16 Hydralazine HCl [Apresoline 25 mg Tablet] 25 mg PO BID 07/30/16 Levothyroxine Sodium [Synthroid 0.15 mg Tablet] 0.15 mg PO DAILY 07/30/16 Metformin HCl [Metformin HCl ER] 2,000 mg PO QPM 07/30/16 Valsartan/Hydrochlorothiazide [Valsartan-Hctz 320-25 mg Tab] 1 tab PO DAILY Venlafaxine HCl [Venlafaxine HCl ER] 150 mg PO DAILY 07/30/16 Enoxaparin Sodium [Lovenox Inj 100 mg/1 ml Disp.syrin] 95 mg SUBCUT Q12 #60 disp.syrin 08/05/16 History of Present Illness Patient complains of: dyspnea History of Present Illness: GARCIA TRINIDAD is a 86 year old female who went home on 16may on coumadin for L dvt. She chose to switch to xarelton 20mg 2d later. On she was found to have pe on cta in ER. Hospital Course Hospital Course: She was titrated on heparin. Dr Underwood placed a filter yesterday. Dr Cha her oncologist suggested lovenox 1mg/kg. Physical Exam Vital Signs: Temp Pulse Resp BP Pulse Ox 98.5 F 88 20 145/59 H 97 08/05/16 03:34 08/05/16 03:34 08/05/16 03:34 08/05/16 03:34 08/05/16 03:34 Intake & Output 08/03/16 08/04/16 08/05/16 07:59 07:59 07:59 Intake Total 1692 1607 1114 Output Total 300 1705 Balance 1392 1607 -591 Weight 208 lb 5.389 oz 207 lb 7.28 oz 208 lb 1.862 oz General appearance: PRESENT: no acute distress Respiratory exam: PRESENT: clear to auscultation denise Cardiovascular exam: PRESENT: irregular rhythm. ABSENT: diastolic murmur, systolic murmur GI/Abdominal exam: ABSENT: mass, organolmegaly, tenderness Extremities exam: ABSENT: pedal edema Neurological exam: PRESENT: oriented to situation Psychiatric exam: PRESENT: appropriate affect Results Laboratory Results: 08/04/16 05:44 08/04/16 05:44 Labs- Last Values WBC 6.6 10^3/uL (4.0-10.5) 08/04/16 05:44 RBC 3.34 10^6/uL (3.72-5.28) L 08/04/16 05:44 Hgb 9.7 g/dL (12.0-15.5) L 08/04/16 05:44 Hct 30.0 % (36.0-47.0) L 08/04/16 05:44 MCV 90 fl (80-97) 08/04/16 05:44 MCH 29.0 pg (27.0-33.4) 08/04/16 05:44 MCHC 32.4 g/dL (32.0-36.0) 08/04/16 05:44 RDW 16.6 % (11.5-14.0) H 08/04/16 05:44 Plt Count 209 10^3/uL (150-450) 08/04/16 05:44 Seg Neutrophils % 67.5 % (42-78) 08/02/16 04:22 Lymphocytes % 19.3 % (13-45) 08/02/16 04:22 Monocytes % 11.8 % (3-13) 08/02/16 04:22 Eosinophils % 0.9 % (0-6) 08/02/16 04:22 Basophils % 0.5 % (0-2) 08/02/16 04:22 Absolute Neutrophils 4.7 10^3/uL (1.7-8.2) 08/02/16 04:22 Absolute Lymphocytes 1.3 10^3/uL (0.5-4.7) 08/02/16 04:22 Absolute Monocytes 0.8 10^3/uL (0.1-1.4) 08/02/16 04:22 Absolute Eosinophils 0.1 10^3/uL (0.0-0.6) 08/02/16 04:22 Absolute Basophils 0.0 10^3/uL (0.0-0.2) 08/02/16 04:22 Retic Count (auto) 1.17 % (0.66-2.85) 07/31/16 01:43 Absolute Retic 0.042 10^6/uL (0.028-0.122) 07/31/16 01:43 PT 13.2 SEC (11.4-15.4) 08/04/16 05:44 INR 0.94 08/04/16 05:44 APTT 57.5 SEC (23.5-35.8) H 08/05/16 05:56 Sodium 133.8 mmol/L (137-145) L 08/04/16 05:44 Potassium 4.1 mmol/L (3.6-5.0) 08/04/16 05:44 Chloride 99 mmol/L (98-107) 08/04/16 05:44 Carbon Dioxide 28 mmol/L (22-30) 08/04/16 05:44 Anion Gap 7 (5-19) 08/04/16 05:44 BUN 15 mg/dL (7-20) 08/04/16 05:44 Creatinine 0.72 mg/dL (0.52-1.25) 08/04/16 05:44 Est GFR ( Amer) > 60 (>60) 08/04/16 05:44 Est GFR (Non-Af Amer) > 60 (>60) 08/04/16 05:44 Glucose 135 mg/dL (75-110) H 08/04/16 05:44 POC Glucose 124 mg/dL (70-110) H 08/03/16 21:52 Lactic Acid 1.9 mmol/L (0.7-2.1) 07/30/16 18:37 Calcium 8.6 mg/dL (8.4-10.2) 08/04/16 05:44 Iron 34.8 ug/dL (37-170) L 07/31/16 01:43 TIBC 318 ug/dL (250-450) 07/31/16 01:43 % Saturation 11 % 07/31/16 01:43 Ferritin 91.90 ng/mL (11.1-264.0) 07/31/16 01:43 Troponin I 0.024 ng/mL 07/30/16 14:09 NT-Pro-B Natriuret Pep 1020 pg/mL (<450) H 07/30/16 19:59 Vitamin B12 302.0 pg/mL (239-931) 07/31/16 01:43 Folate 5.94 ng/mL (>2.76) 07/31/16 01:43 Urine Color YELLOW 08/04/16 22:05 Urine Appearance CLEAR 08/04/16 22:05 Urine pH 6.0 (5.0-9.0) 08/04/16 22:05 Ur Specific [place] 1.011 08/04/16 22:05 Urine Protein NEGATIVE mg/dL (NEGATIVE) 08/04/16 22:05 Urine Glucose (UA) NEGATIVE mg/dL (NEGATIVE) 08/04/16 22:05 Urine Ketones NEGATIVE mg/dL (NEGATIVE) 08/04/16 22:05 Urine Blood NEGATIVE (NEGATIVE) 08/04/16 22:05 Urine Nitrite NEGATIVE (NEGATIVE) 08/04/16 22:05 Urine Bilirubin NEGATIVE (NEGATIVE) 08/04/16 22:05 Urine Urobilinogen NEGATIVE mg/dL (<2.0) 08/04/16 22:05 Ur Leukocyte Esterase NEGATIVE (NEGATIVE) 08/04/16 22:05 Urine WBC (Auto) 1 /HPF 08/04/16 22:05 Urine RBC (Auto) 1 /HPF 08/04/16 22:05 U Hyaline Cast (Auto) 4 /LPF 07/30/16 16:15 Urine Bacteria (Auto) TRACE /HPF 08/04/16 22:05 Ur Squamous Epith Cells RARE /HPF 08/01/16 14:03 Squamous Epi Cells Auto 1 /HPF 08/04/16 22:05 Urine Mucus (Auto) RARE /LPF 08/04/16 22:05 Urine Ascorbic Acid NEGATIVE (NEGATIVE) 08/04/16 22:05 Stool Occult Blood NEGATIVE (NEGATIVE) 08/01/16 16:02 Group A Strep Rapid NEGATIVE (NEGATIVE) 07/30/16 17:03 Impressions: Chest/Abdomen CTA 07/30/16 14:55 IMPRESSION: Right-sided pulmonary emboli in the right lower lobe segmental artery and subsegmental branches as well. Fluoroscopy 08/04/16 00:00 IMPRESSION: Intra procedural imaging and fluoro. Chest X-Ray 08/04/16 15:06 IMPRESSION: NO ACUTE RADIOGRAPHIC FINDING IN THE CHEST. KUB X-Ray 08/04/16 15:13 IMPRESSION: Possible ileus. Qualifiers PATEINT BEING DISCHARGED WITH ANY OF THE FOLLOWING DIAGNOSIS?: VTE (PE or DVT) VTE patient discharged on overlapping Therapy?: Yes Plan Discharge Plan: home. OV 8d
[2016-08-05] MEDS: IPRATROPIUM/ALBUTEROL 0.5-2.5 MG/3 ML AMPUL NEB SCH ×3 (07:47→23:19)
[2016-08-05] MEDS: METFORMIN HCL 500 MG TABLET PO SCH ×2 (08:26→18:30)
[2016-08-05] MEDS: CYCLOSPORINE 0.05% OPH EMULSIO 0.4 ML DROPERETTE OU SCH ×2 (09:00→21:07)
[2016-08-05] MEDS: LEVOTHYROXINE SODIUM 0.15 MG TABLET PO SCH (09:51)
[2016-08-05] MEDS: AMLODIPINE BESYLATE 10 MG TABLET PO SCH (09:51)
[2016-08-05] MEDS: VALSARTAN 160 MG TABLET PO SCH (09:52)
[2016-08-05] MEDS: HYDRALAZINE HCL 25 MG TABLET PO SCH ×2 (09:52→21:09)
[2016-08-05] MEDS: VENLAFAXINE HCL 75 MG CAP.SR.24H PO SCH (09:52)
[2016-08-05] MEDS: HYDROCHLOROTHIAZIDE 25 MG TABLET PO SCH (09:53)
[2016-08-06] MEDS: ENOXAPARIN SODIUM INJ 100 MG/1 ML DISP.SYRIN SUBCUT SCH ×2 (04:46→16:35)
[2016-08-06 05:59] LABS: HEMATOCRIT 31.4 % (36.0-47.0); HEMOGLOBIN 10.3 g/dL (12.0-15.5); HGB HCT DIFFERENCE -0.5; MEAN CORPUSCULAR HEMOGLOBIN 29.9 pg (27.0-33.4); MEAN CORPUSCULAR HGB CONC 32.7 g/dL (32.0-36.0); MEAN CORPUSCULAR VOLUME 91 fl (80-97); RED BLOOD COUNT 3.44 10^6/uL (3.72-5.28); RED CELL DISTRIBUTION WIDTH 16.9 % (11.5-14.0); WHITE BLOOD COUNT 4.6 10^3/uL (4.0-10.5)
--- NOTE | 2016-08-06 07:35 | PDOC PROGRESS REPORT ---
Subjective Progress Note for:: 08/06/16 Subjective:: discharged delayed to allow pharmacy to order lovenox. Prior authorization for > 39 doses qm is pending too. I called [employer]. Physical Exam Vital Signs: Temp Pulse Resp BP Pulse Ox 98.6 F 87 17 137/49 H 95 08/06/16 04:24 08/06/16 04:24 08/06/16 04:24 08/06/16 04:24 08/06/16 04:24 Intake & Output 08/04/16 08/05/16 08/06/16 07:59 07:59 07:59 Intake Total 1607 1114 1017 Output Total 1705 Balance 1607 -591 1017 Weight 207 lb 7.28 oz 208 lb 1.862 oz 207 lb 10.807 oz General appearance: PRESENT: no acute distress Respiratory exam: PRESENT: clear to auscultation denise Cardiovascular exam: ABSENT: diastolic murmur, irregular rhythm, systolic murmur GI/Abdominal exam: ABSENT: mass, organolmegaly, tenderness Extremities exam: PRESENT: pedal edema - L1+ Neurological exam: PRESENT: oriented to situation Psychiatric exam: PRESENT: appropriate affect Results Laboratory Results: 08/06/16 05:17 08/04/16 05:44 08/06/16 05:17 WBC 4.6 RBC 3.44 L Hgb 10.3 L Hct 31.4 L MCV 91 MCH 29.9 MCHC 32.7 RDW 16.9 H Plt Count 214 07/30/16 19:59 NT-Pro-B Natriuret Pep 1020 H Impressions: Chest/Abdomen CTA 07/30/16 14:55 IMPRESSION: Right-sided pulmonary emboli in the right lower lobe segmental artery and subsegmental branches as well. Fluoroscopy 08/04/16 00:00 IMPRESSION: Intra procedural imaging and fluoro. Chest X-Ray 08/04/16 15:06 IMPRESSION: NO ACUTE RADIOGRAPHIC FINDING IN THE CHEST. KUB X-Ray 08/04/16 15:13 IMPRESSION: Possible ileus. Assessment & Plan - Diagnosis (1) Pulmonary embolism Qualifiers: Pulmonary embolism type: other Chronicity: acute Acute cor pulmonale presence: without acute cor pulmonale Qualified Code(s): I26.99 - Other pulmonary embolism without acute cor pulmonale Is this a current diagnosis for this admission?: YesPlan: home on lovenox. If [facility] refuses pa, she may need to resume xarelto (2) Irritable bowel syndrome with constipation Is this a current diagnosis for this admission?: Yes
[2016-08-06] MEDS: IPRATROPIUM/ALBUTEROL 0.5-2.5 MG/3 ML AMPUL NEB SCH ×2 (07:52→16:13)
[2016-08-06] MEDS: METFORMIN HCL 500 MG TABLET PO SCH ×2 (08:21→16:35)
[2016-08-06] MEDS: VALSARTAN 160 MG TABLET PO SCH (09:24)
[2016-08-06] MEDS: CYCLOSPORINE 0.05% OPH EMULSIO 0.4 ML DROPERETTE OU SCH (09:24)
[2016-08-06] MEDS: AMLODIPINE BESYLATE 10 MG TABLET PO SCH (09:25)
[2016-08-06] MEDS: VENLAFAXINE HCL 75 MG CAP.SR.24H PO SCH (09:25)
[2016-08-06] MEDS: LEVOTHYROXINE SODIUM 0.15 MG TABLET PO SCH (09:25)
[2016-08-06] MEDS: HYDROCHLOROTHIAZIDE 25 MG TABLET PO SCH (09:25)
[2016-08-06] MEDS: HYDRALAZINE HCL 25 MG TABLET PO SCH (09:25)
[2016-08-06 16:16] VITALS: BP 145/59
== END 2016-08-06 16:59 | disposition home or self-care (01) | DRG 167 ==
LOC: ER 13:22 → EH 19:33 → UNDOADMIN 19:33 → EH 19:39 → 3N 07-31 00:36 → EH 07-31 00:36
PROVIDERS: ADMIT Internal Medicine; ATTEND Internal Medicine
PROC: B543ZZA Ultrasonography of Right Jugular Veins, Guidance (ICD-10-PCS; 2016-08-04)
PROC: 06H03DZ Insertion of Intraluminal Device into Inferior Vena Cava, Percutaneous Approach (ICD-10-PCS; principal; 2016-08-04 16:00)
DX: I26.99 Other pulmonary embolism without acute cor pulmonale (principal); I50.32 Chronic diastolic (congestive) heart failure; I82.412 Acute embolism and thrombosis of left femoral vein; T38.6X5A Adverse effect of antigonadotrophins, antiestrogens, antiandrogens, not elsewhere classified, initial encounter; I11.0 Hypertensive heart disease with heart failure; K21.9 Gastro-esophageal reflux disease without esophagitis; M19.90 Unspecified osteoarthritis, unspecified site; Z79.02 Long term (current) use of antithrombotics/antiplatelets; H35.30 Unspecified macular degeneration; E11.9 Type 2 diabetes mellitus without complications; F32.9 Major depressive disorder, single episode, unspecified; F41.9 Anxiety disorder, unspecified; I95.9 Hypotension, unspecified; K58.1 Irritable bowel syndrome with constipation; F43.20 Adjustment disorder, unspecified; Z87.891 Personal history of nicotine dependence; Z85.3 Personal history of malignant neoplasm of breast; Z79.84 Long term (current) use of oral hypoglycemic drugs; Z88.8 Allergy status to other drugs, medicaments and biological substances; Z90.13 Acquired absence of bilateral breasts and nipples; Z92.21 Personal history of antineoplastic chemotherapy; Z92.3 Personal history of irradiation; Z90.710 Acquired absence of both cervix and uterus; Z96.652 Presence of left artificial knee joint
CPT/HCPCS: 1930; 36415; 71010; 71020; 71275; 74000; 80048; 81001; 82272; 82607; 82728; 82746; 82962; 83540; 83550; 83605; 83880; 84484; 85025; 85027; 85045; 85610; 85730; 87040; 87070; 87880; 93005; 93010; 93971; 94640; 96365; 96367; 96375; 99291; C1752; C1769; C1880; J0696; J1644; J1650; J1815; J2250; J2543; J2704; J3370; J3490; J7030; J7620; Q9967

== ENCOUNTER → 2016-09-12 | Outpatient (CLI) | payer MEDICARE ==
--- NOTE | 2016-09-14 12:42 | RADIOLOGY REPORT (SQ) ---
EXAM DESCRIPTION: PET CT SKULL/THIGH COMPLETED DATE/TIME: 09/12/2016 7:26 pm REASON FOR STUDY: BREAST CANCER COMPARISON: CT abdomen pelvis 01/15/2010, 03/14/2016, 07/30/2016 Bone scan 06/11/2011 PET-CT 06/27/2011 RADIONUCLIDE AND DOSE: 12.9 mCi F18 FDG The route of agent administration: Intravenous FASTING BLOOD SUGAR: 111 mg/dl CONTRAST TYPE AND DOSE: No CT contrast given. TECHNIQUE: Blood glucose level was verified. Above dose of FDG was injected intravenously. 2-D seg mented attenuation correction images were obtained from the base of the skull to the midthighs. Nonc ontrast CT images were obtained for attenuation correction and fusion with emission images. CT image s were performed without oral or intravenous contrast and are not sensitive for parenchymal lesions. A series of overlapping emission PET images were obtained. Images reviewed and manipulated at [facility] work [facility] by the radiologist. Images stored on PACS. LIMITATIONS: None. FINDINGS: HEAD AND NECK: No areas of abnormal metabolic activity in the soft tissues of the head and neck. CHEST: No areas of worrisome abnormal metabolic activity in the chest. 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 Post left mastectomy bilaterally, there is minimal metabo lic activity along the left pectoralis muscle with SUV of 1.8, at baseline. This is not suspicious f or recurrence. ABDOMEN AND PELVIS: No areas of abnormal metabolic activity in the abdomen or pelvis. Expected physi ologic activity is present in the genitourinary system and bowel. PROXIMAL LOWER EXTREMITIES: No areas of abnormal metabolic activity in the soft tissues of the lower extremities. BONES: No abnormal metabolic activity in the visualized skeleton. ADDITIONAL CT FINDINGS: Bilateral mastectomies, old ventral hernia repair with mesh, inferior vena ca va filter, left lower lobe calcified granuloma with left hilar calcified lymph nodes. Non metabolic small nodule left adrenal gland unchanged from multiple previous studies. OTHER: No other significant findings. IMPRESSION: No PET-CT findings worrisome for recurrent breast cancer TECHNICAL DOCUMENTATION: JOB ID: [id number] [employer]- All Rights Reserved
== END ==
LOC: RAD 16:00
PROVIDERS: ATTEND Internal Medicine Medical Oncology
DX: C50.912 Malignant neoplasm of unspecified site of left female breast (principal); Z86.711 Personal history of pulmonary embolism
CPT/HCPCS: 78815; A9552

== ENCOUNTER → 2017-09-03 | Outpatient (CLI) | payer MEDICARE ==
--- NOTE | 2017-09-04 11:58 | XCELERA REPORT ---
[address] [address] Transthoracic Echocardiogram Report Name: GARCIA TRINIDAD Age: 87 yrs Gender: Female : 1930 Patient Status: Outpatient Patient Location: Study Date: 09/03/2017 11:20 AM Height: 64 in Weight: 198 lb BSA: 1.9 m2 Procedure: A complete two-dimensional transthoracic echocardiogram was performed (2D, M-mode, spectral and color flow Doppler). The study was technically adequate with some images being suboptimal in quality. Reason For Study: SOB Ordering Physician: NETTE MCKEON Performed By: Caden Santos Interpretation Summary The left ventricular ejection fraction is normal. There is mild concentric left ventricular hypertrophy. The left ventricle is grossly normal size. Doppler measurements suggest pseudonormalized left ventricular relaxation, which is associated with grade II/IV or mild to moderate diastolic dysfunction Wall motion cannot be accurately commented on, but no definite regional wall motion abnormalities noted. The right ventricular systolic function is normal. The right atrium is normal in size The left atrium is mildly dilated. There is a mild to moderate amount of mitral regurgitation There is no mitral valve stenosis. There is a mild amount of aortic regurgitation There is no aortic valve stenosis There is a mild amount of tricuspid regurgitation There is mild pulmonary hypertension by echo Right ventricular systolic pressure is estimated to be elevated at 30- 40mmHg. The aortic root is not well visualized but is probably normal size. The inferior vena cava was not well visualized There is no pericardial effusion. MMode/2D Measurements & Calculations RVDd: 3.5 cm LVIDd: 4.8 cmFS: 43.9 % Ao root diam: 3.1 cm IVSd: 0.99 cm LVIDs: 2.7 cmEDV(Teich): 109.1 ml LVPWd: 1.0 cmESV(Teich): 27.3 ml Ao root area: 7.5 cm2 EF(Teich): 75.0 % LA dimension: 4.4 cm LVOT diam: 2.0 cm LVOT area: 3.0 cm2 Doppler Measurements & Calculations MV E max lc: MV P1/2t max lc: Ao V2 max: AI max lc: 96.3 cm/sec 96.5 cm/sec 157.2 cm/sec 419.3 cm/sec MV A max lc: MV P1/2t: 75.7 msec Ao max PG: AI max P.2 cm/sec MVA(P1/2t): 2.9 cm2 9.9 mmHg 70.3 mmHg MV E/A: 0.97 MV dec slope: MARITA(V,D): 2.2 cm2 AI dec slope: 373.6 cm/sec2 211.8 cm/sec2 MV dec time: AI P1/2t: 0.24 sec 580.0 msec LV V1 max PG: TV V2 max: PA V2 max: PI end-d lc: 5.0 mmHg 291.1 cm/sec 80.5 cm/sec 126.7 cm/sec LV V1 max: TV max P.9 mmHgPA max P.0 cm/sec 2.6 mmHg Left Ventricle The left ventricle is grossly normal size. There is mild concentric left ventricular hypertrophy. The left ventricular ejection fraction is normal. Doppler measurements suggest pseudonormalized left ventricular relaxation, which is associated with grade II/IV or mild to moderate diastolic dysfunction. Wall motion cannot be accurately commented on, but no definite regional wall motion abnormalities noted. Right Ventricle The right ventricle is grossly normal size. There is normal right ventricular wall thickness. The right ventricular systolic function is normal. Atria The right atrium is normal in size. The left atrium is mildly dilated. Interarterial septum not well visualized and not well dopplered. Cannot comment on ASD/PFO presence. Mitral Valve The mitral valve is grossly normal. There is no mitral valve stenosis. There is a mild to moderate amount of mitral regurgitation. Aortic Valve The aortic valve is sclerotic, but shows no functional abnormality. There is no aortic valve stenosis. There is a mild amount of aortic regurgitation. Tricuspid Valve The tricuspid valve is not well visualized, but is grossly normal. There is no tricuspid stenosis. There is a mild amount of tricuspid regurgitation. There is mild pulmonary hypertension by echo. Right ventricular systolic pressure is estimated to be elevated at 30-40mmHg. Pulmonic Valve The pulmonic valve is not well visualized. Great Vessels The aortic root is not well visualized but is probably normal size. The inferior vena cava was not well visualized. Effusions There is no pericardial effusion. : NETTE MCKEON > Antonio Shea
== END ==
LOC: SP 10:54
PROVIDERS: ATTEND Family Medicine Geriatric Medicine
DX: R06.2 Wheezing (principal)
CPT/HCPCS: 93306

== ENCOUNTER → 2017-09-15 | Outpatient (CLI) | payer MEDICARE ==
--- NOTE | 2017-09-15 12:52 | RADIOLOGY REPORT (SQ) ---
EXAM DESCRIPTION: CHEST PA/LATERAL COMPLETED DATE/TIME: 09/15/2017 11:53 am REASON FOR STUDY: SOB COMPARISON: 08/04/2016 NUMBER OF VIEWS: Two view. TECHNIQUE: Frontal and lateral radiographic views of the chest acquired. LIMITATIONS: None. FINDINGS: LUNGS AND PLEURA: No opacities, masses or pneumothorax. No pleural effusion. Calcified g ranulomata left lower lung zone MEDIASTINUM AND HILAR STRUCTURES: No masses or contour abnormalities. HEART AND VASCULATURE: Heart normal size. No evidence for failure. BONY STRUCTURES: No acute findings. HARDWARE: None. OTHER: No other significant finding. IMPRESSION: No acute findings. No interval change. TECHNICAL DOCUMENTATION: JOB ID: [id number] [employer]- All Rights Reserved Reading location - IP/workstation name: [email or web address]
--- NOTE | 2017-09-15 12:53 | RADIOLOGY REPORT (SQ) ---
EXAM DESCRIPTION: KUB COMPLETED DATE/TIME: 09/15/2017 11:53 am REASON FOR STUDY: IBS, CHANGE IN BOWEL HABITS COMPARISON: None. NUMBER OF VIEWS: One view. TECHNIQUE: Supine radiographic image of the abdomen acquired. LIMITATIONS: None. FINDINGS: BOWEL GAS PATTERN: Scattered non-dilated small bowel loops. No obstructive pattern. CALCIFICATIONS: No suspicious calcifications. SOFT TISSUES: No gross mass or suggestion of organomegaly. HARDWARE: None in the abdomen.. BONES: No acute fracture. No worrisome bone lesions. OTHER: No other significant finding. IMPRESSION: NON-SPECIFIC BOWEL GAS PATTERN WITHOUT EVIDENCE FOR OBSTRUCTION. Minimal fecal material TECHNICAL DOCUMENTATION: JOB ID: [id number] [employer]- All Rights Reserved Reading location - IP/workstation name: [email or web address]
== END ==
LOC: OD 11:29
PROVIDERS: ATTEND Family Medicine Geriatric Medicine
DX: J44.9 Chronic obstructive pulmonary disease, unspecified (principal); R06.02 Shortness of breath; K58.2 Mixed irritable bowel syndrome; R19.4 Change in bowel habit
CPT/HCPCS: 71046; 74018

== ENCOUNTER → 2017-09-15 | Outpatient (CLI) | payer MEDICARE | LOC: OD 11:32 | PROVIDERS: ATTEND Physician Assistant Surgical | DX: K58.2 Mixed irritable bowel syndrome (principal); R19.4 Change in bowel habit ==

== ENCOUNTER → 2017-09-23 | Outpatient (CLI) | payer MEDICARE ==
[~2017-09-23] MED LIST: ALBUTEROL SULFATE 0.083% NEB 2.5 MG/3 ML AMPUL NEB ONE
[2017-09-23 10:02] LABS: ARTERIAL BLOOD BASE EXCESS -1.6 mmol/L; ARTERIAL BLOOD H2CO3 1.16 mmol/L (1.05-1.35); ARTERIAL BLOOD O2 SATURATION 95.9 % (94-98); ARTERIAL BLOOD PCO2 38.6 mmHg (35-45); ARTERIAL BLOOD PH 7.39 (7.35-7.45); ARTERIAL BLOOD PO2 80.5 mmHg (80-100); ARTERIAL BLOOD TOTAL CO2 24.2 mmol/L (21-25)
[2017-09-23 10:03] LABS: ARTERIAL BLOOD FIO2 ROOM AIR
--- NOTE | 2017-09-24 14:39 | Pulmonary Function Test ---
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 - Report Spirometry: FVC 1.72 L 73% postbronchodilator 1.70 L 72% FEV1 1.14 L 73% postbronchodilator 1.25 L 79% FEV1/FVC % 66 postbronchodilator 74 predicted 80 FEF 25-75% 0.61 L 57% postbronchodilator 0.89 L 82% Lung Volume: Total lung capacity 4.42 L 94% Vital capacity 1.72 L 73% Inspiratory capacity 1.32 L FRC in 2 3.10 L 131% ERV 0.13 L RV 2.70 L 130% RV/TLC % 61 predicted 44 Diffusion Capactity: Diffusion capacity 11.7 56% DLCO/VA 3.74 115% Impression: Mild obstructive ventilatory defect with insignificant response to bronchodilator therapy this in and of itself does not preclude a clinical trial of bronchodilator therapy. No restrictive ventilatory defect. No hyperinflation. Mild air-trapping. Moderate decrease in diffusion capacity.
== END ==
LOC: RT 09:12
PROVIDERS: ATTEND Family Medicine Geriatric Medicine
DX: J44.9 Chronic obstructive pulmonary disease, unspecified (principal); R06.2 Wheezing; R06.00 Dyspnea, unspecified
CPT/HCPCS: 82803; 36600; 94729; 94727; 94060; A9270

== ENCOUNTER → 2018-04-29 | Outpatient (CLI) | payer MEDICARE ==
--- NOTE | 2018-04-29 11:03 | RADIOLOGY REPORT (SQ) ---
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 NUMBER OF VIEWS: Three views. TECHNIQUE: AP, lateral and oblique without weight bearing radiographic images acquired of the right foot. LIMITATIONS: None. FINDINGS: MINERALIZATION: Normal. BONES: Deformity of the head of the 5th metatarsal related to old fracture. No acute fractures. Ante rior and posterior heel spurs. Scattered calcification within the plantar fascia. JOINTS: Moderate degenerative change involving the 1st metatarsophalangeal joint. SOFT TISSUES: 8 mm linear metallic foreign body between the 4th and 5th toes. OTHER: No other significant finding. IMPRESSION: No acute findings. See above discussion. TECHNICAL DOCUMENTATION: JOB ID: [id number] [employer]- All Rights Reserved Reading location - IP/workstation name: [email or web address]
[2018-04-29 11:26] LABS: ABSOLUTE LYMPHOCYTES (AUTO) 1.2 10^3/uL (0.5-4.7); ABSOLUTE MONOCYTES (AUTO) 0.7 10^3/uL (0.1-1.4); ABSOLUTE NEUT (AUTO) 3.4 10^3/uL (1.7-8.2); BASOPHILS % (AUTO) 0.4 % (0-2); EOSINOPHILS % (AUTO) 0.7 % (0-6); HEMATOCRIT 35.8 % (36.0-47.0); HEMOGLOBIN 11.9 g/dL (12.0-15.5); MEAN CORPUSCULAR HEMOGLOBIN 30.1 pg (27.0-33.4); MEAN CORPUSCULAR HGB CONC 33.1 g/dL (32.0-36.0); MEAN CORPUSCULAR VOLUME 91 fl (80-97); MONOCYTES % (AUTO) 13.2 % (3-13); PLATELET COUNT 248 10^3/uL (150-450); RED BLOOD COUNT 3.94 10^6/uL (3.72-5.28); RED CELL DISTRIBUTION WIDTH 16.9 % (11.5-14.0); SEGMENTED NEUTROPHILS % (AUTO) 63.7 % (42-78); TOTAL CELLS COUNTED % (AUTO) 100 %; WHITE BLOOD COUNT 5.3 10^3/uL (4.0-10.5)
[2018-04-29 12:10] LABS: ALANINE AMINOTRANSFERASE 16 U/L (9-52); ALBUMIN 4.1 g/dL (3.5-5.0); ALKALINE PHOSPHATASE 55 U/L (38-126); ANION GAP 13 (5-19); ASPARTATE AMINO TRANSFERASE 15 U/L (14-36); BILIRUBIN,DIRECT 0.3 mg/dL (0.0-0.4); BILIRUBIN,TOTAL 0.4 mg/dL (0.2-1.3); BLOOD UREA NITROGEN 31 mg/dL (7-20); CALCIUM 9.6 mg/dL (8.4-10.2); CARBON DIOXIDE 25 mmol/L (22-30); CHLORIDE 100 mmol/L (98-107); CHOLESTEROL 155.42 mg/dL (0-200); GLUCOSE 104 mg/dL (75-110); POTASSIUM 4.6 mmol/L (3.6-5.0); SODIUM 137.8 mmol/L (137-145); TOTAL PROTEIN 6.6 g/dL (6.3-8.2); TRIGLYCERIDES 61 mg/dL (<150); URIC ACID 5.3 mg/dL (2.5-7.5)
[2018-04-29 12:21] LABS: DIRECT LDL 67 mg/dL (<100)
--- NOTE | 2018-04-29 12:56 | RADIOLOGY REPORT (SQ) ---
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 NUMBER OF VIEWS: Three views. TECHNIQUE: AP, lateral, and oblique radiographic images acquired of the right ankle. LIMITATIONS: None. FINDINGS: MINERALIZATION: Normal. BONES: No acute fracture or dislocation. No worrisome bone lesions. Anterior and posterior heel spu rs. Degenerative spurring along the dorsal aspect of the tarsal bones. JOINTS: No effusions. SOFT TISSUES: Generalized mild to moderate soft tissue swelling. OTHER: No other significant finding. IMPRESSION: No acute findings. Generalized soft tissue swelling. Degenerative changes as described above. TECHNICAL DOCUMENTATION: JOB ID: [id number] [employer]- All Rights Reserved Reading location - IP/workstation name: [email or web address]
--- NOTE | 2018-04-29 13:10 | RADIOLOGY REPORT (SQ) ---
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 Images reviewed with lung, soft tissue and bone windows. Reconstructed coronal and sagittal MPR images reviewed. All images st ored on PACS. All CT scanners at this facility use dose modulation, iterative reconstruction, and/or weight based d osing when appropriate to reduce radiation dose to as low as reasonably achievable (ALARA). [facility]: Dose Right [facility]: CareDose [facility]: Dose Right [facility]: Teradose 4D [facility]: [employer] RADIATION DOSE: CT Rad equipment meets quality standard of care and radiation dose reduction techniq ues were employed. CTDIvol: 8.8 - 11.4 mGy. DLP: 404 mGy-cm. mGy. LIMITATIONS: No technical limitations. FINDINGS: LUNGS AND PLEURA: There is a small area pleural scarring in the left upper lobe area. Louis cified granuloma is present on the left. No significant interstitial changes are present. There is no peripheral honeycombing. HILAR AND MEDIASTINAL STRUCTURES: No identified masses or abnormal nodes. No obvious aneurysm. HEART AND VASCULAR STRUCTURES: No aneurysm. No pericardial effusion. UPPER ABDOMEN: No significant findings. Limited exam. THYROID AND OTHER SOFT TISSUES: Thyroid is unremarkable. There are some surgical clips in the chest wall on the left anteriorly. There is a fluid collection measuring about 1.5 by 4 cm. BONES: No significant finding. HARDWARE: None in the chest. OTHER: No other significant findings. IMPRESSION: No acute findings in the chest. There is mild pleural scarring on the left. There is a fluid collection in the anterior chest wall, possible seroma. TECHNICAL DOCUMENTATION: JOB ID: [id number] Quality ID # [id number]: Final reports with documentation of one or more dose reduction techniques (e.g., Au tomated exposure control, adjustment of the mA and/or kV according to patient size, use of iterative reconstruction technique) 2010 [employer]- All Rights Reserved Reading location - IP/workstation name: [email or web address]
[2018-04-30 12:38] LABS: CREATININE URINE 112.9 mg/dL (Not Estab.); MICROALBUMIN URINE 49.5 ug/mL (Not Estab.)
== END ==
LOC: RAD 09:46
PROVIDERS: ATTEND Family Medicine Geriatric Medicine
DX: J84.10 Pulmonary fibrosis, unspecified (principal); M25.571 Pain in right ankle and joints of right foot; M79.671 Pain in right foot; I82.502 Chronic embolism and thrombosis of unspecified deep veins of left lower extremity; E11.9 Type 2 diabetes mellitus without complications; Z79.899 Other long term (current) drug therapy; E03.9 Hypothyroidism, unspecified
CPT/HCPCS: 36415; 71250; 80053; 80061; 82043; 82570; 83036; 84443; 84550; 85025

== ENCOUNTER → 2018-06-30 | Outpatient (CLI) | payer MEDICARE ==
--- NOTE | 2018-06-30 12:26 | RADIOLOGY REPORT (SQ) ---
EXAM DESCRIPTION: CHEST PA/LATERAL COMPLETED DATE/TIME: 06/30/2018 12:13 pm REASON FOR STUDY: CHRONIC DIASTOLIC (CONGESTIVE) HEART FAILURE,SOB,COPD COMPARISON: 07/30/2016 EXAM PARAMETERS: NUMBER OF VIEWS: two views TECHNIQUE: Digital Frontal and Lateral radiographic views of the chest acquired. RADIATION DOSE: NA LIMITATIONS: none FINDINGS: LUNGS AND PLEURA: There is mild bilateral perihilar and interstitial airspace disease. No effusions. No pneumothorax. MEDIASTINUM AND HILAR STRUCTURES: No masses or contour abnormalities. HEART AND VASCULAR STRUCTURES: Heart is enlarged with central vascular prominence. BONES: No acute findings. HARDWARE: None in the chest. OTHER: No other significant finding. IMPRESSION: Cardiomegaly and central vascular congestion. Mild interstitial edema. Findings have p rogressed when compared to prior study. TECHNICAL DOCUMENTATION: JOB ID: [id number] [employer]- All Rights Reserved Reading location - IP/workstation name: [email or web address]
[2018-06-30 13:02] LABS: ABSOLUTE LYMPHOCYTES (AUTO) 0.6 10^3/uL (0.5-4.7); ABSOLUTE MONOCYTES (AUTO) 0.7 10^3/uL (0.1-1.4); ABSOLUTE NEUT (AUTO) 3.6 10^3/uL (1.7-8.2); BASOPHILS % (AUTO) 0.6 % (0-2); EOSINOPHILS % (AUTO) 0.2 % (0-6); HEMATOCRIT 33.6 % (36.0-47.0); LYMPHOCYTES % (AUTO) 12.9 % (13-45); MEAN CORPUSCULAR HGB CONC 32.6 g/dL (32.0-36.0); MEAN CORPUSCULAR VOLUME 89 fl (80-97); MONOCYTES % (AUTO) 14.8 % (3-13); PLATELET COUNT 206 10^3/uL (150-450); RED BLOOD COUNT 3.79 10^6/uL (3.72-5.28); RED CELL DISTRIBUTION WIDTH 15.8 % (11.5-14.0); SEGMENTED NEUTROPHILS % (AUTO) 71.5 % (42-78); TOTAL CELLS COUNTED % (AUTO) 100 %
[2018-06-30 13:28] LABS: ANION GAP 11 (5-19); BLOOD UREA NITROGEN 16 mg/dL (7-20); CALCIUM 9.3 mg/dL (8.4-10.2); CARBON DIOXIDE 29 mmol/L (22-30); CHLORIDE 94 mmol/L (98-107); GLUCOSE 107 mg/dL (75-110); POTASSIUM 4.3 mmol/L (3.6-5.0); SODIUM 133.6 mmol/L (137-145)
== END ==
LOC: OD 11:54
PROVIDERS: ATTEND Family Medicine Geriatric Medicine
DX: I50.32 Chronic diastolic (congestive) heart failure (principal); E03.9 Hypothyroidism, unspecified; Z79.899 Other long term (current) drug therapy; J30.9 Allergic rhinitis, unspecified; R06.02 Shortness of breath; J44.9 Chronic obstructive pulmonary disease, unspecified
CPT/HCPCS: 36415; 71046; 80048; 83735; 84443; 85025; 87086